=== PATIENT | female | born 1995 | race Caucasian/White ===

== ENCOUNTER → 2017-01-07 | Outpatient (REF) | payer OTHER, SELFPAY | LOC: M LAB REF 17:11 | PROVIDERS: ATTEND Advanced Practice Midwife | DX: Z11.3 Encounter for screening for infections with a predominantly sexual mode of transmission (principal) ==

== ENCOUNTER → 2017-08-18 | Outpatient (CLI) | payer MEDICAID ==
[2017-08-18 18:19] LABS: FREE T4 1.01 NG/DL (0.78-1.33)
[2017-08-18 18:56] LABS: BASO # 0.1 10^3/uL (0.0-0.2); BASO % 0.5 % (0.0-1.0); EOS # 0.1 10^3/uL (0.0-0.50); EOS % 0.9 % (0.0-3.0); HEMATOCRIT 39.8 % (36.0-47.0); HEMOGLOBIN 13.9 g/dl (12.0-16.0); IMMATURE GRANULOCYTE % 0.4 % (0-3.0); LYMPH # 2.6 10^3/uL (1.5-6.5); LYMPH % 20.2 % (24.0-44.0); MEAN CORPUSCULAR HEMOGLOBIN 29.9 pg (27.0-33.0); MEAN CORPUSCULAR HGB CONC 34.9 g/dl (32.0-36.5); MEAN CORPUSCULAR VOLUME 85.6 fl (80.0-96.0); MONO % 7.6 % (0.0-5.0); NEUTROPHILS % 70.4 % (36.0-66.0); PLATELET COUNT, AUTOMATED 318 10^3/uL (150-450); RED BLOOD COUNT 4.65 10^6/uL (4.00-5.40); RED CELL DISTRIBUTION WIDTH 11.9 % (11.5-14.5); WHITE BLOOD COUNT 12.8 10^3/uL (4.0-10.0)
[2017-08-18 19:49] LABS: CHLAMYDIA DNA AMPLIFICATION NEGATIVE (NEGATIVE); GC DNA AMPLIFICATION NEGATIVE (NEGATIVE)
[2017-08-20 10:25] LABS: RUBELLA IgG QUALITATIVE IMMUNE (IMMUNE)
[2017-08-20 10:39] LABS: HBsAg Prenatal NEGATIVE (NEGATIVE)
[2017-08-20 10:56] LABS: HIV 1&2 SCREEN CENTAUR NEGATIVE (NEGATIVE)
== END ==
LOC: M SMT 14:41
DX: Z36.89 Encounter for other specified antenatal screening (principal); Z3A.10 10 weeks gestation of pregnancy
CPT/HCPCS: 84443

== ENCOUNTER → 2017-08-19 | Outpatient (REF) | payer MEDICAID | LOC: M SFHCLERA 12:13 | DX: J02.9 Acute pharyngitis, unspecified (principal) ==

== ENCOUNTER → 2018-02-16 | Outpatient (REF) | payer OTHER | LOC: M LAB REF 17:26 | DX: Z34.83 Encounter for supervision of other normal pregnancy, third trimester (principal) ==

== ENCOUNTER → 2018-02-22 | Outpatient (CLI) | payer OTHER ==
[2018-02-22 14:20] LABS: HEMATOCRIT 34.7 % (36.0-47.0); HEMOGLOBIN 11.7 g/dl (12.0-15.5); MEAN CORPUSCULAR HEMOGLOBIN 30.1 pg (27.0-33.0); MEAN CORPUSCULAR HGB CONC 33.7 g/dl (32.0-36.5); MEAN CORPUSCULAR VOLUME 89.2 fl (80.0-96.0); PLATELET COUNT, AUTOMATED 317 10^3/uL (150-450); RED BLOOD COUNT 3.89 10^6/uL (4.00-5.40); RED CELL DISTRIBUTION WIDTH 12.1 % (11.5-14.5)
[2018-02-22 14:40] LABS: GLUCOSE CHALLENGE TEST 1 HOUR 160 MG/DL (LESS THAN 140)
== END ==
LOC: M LAB 12:07
DX: Z34.82 Encounter for supervision of other normal pregnancy, second trimester (principal)
CPT/HCPCS: 82950

== ENCOUNTER → 2018-02-28 | Outpatient (CLI) | payer OTHER | LOC: M RAD 17:01 | DX: O24.419 Gestational diabetes mellitus in pregnancy, unspecified control (principal); Z36.89 Encounter for other specified antenatal screening; Z3A.38 38 weeks gestation of pregnancy | CPT/HCPCS: 76816 ==

== ENCOUNTER 2018-03-08 14:48 | Inpatient (IN) | payer OTHER ==
[2018-03-08] MEDS: LACTATED RINGER'S 1000 ML IV (16:20)
[2018-03-08 16:44] LABS: HEMATOCRIT 34.8 % (36.0-47.0); HEMOGLOBIN 11.9 g/dl (12.0-15.5); MEAN CORPUSCULAR HEMOGLOBIN 30.2 pg (27.0-33.0); MEAN CORPUSCULAR HGB CONC 34.2 g/dl (32.0-36.5); MEAN CORPUSCULAR VOLUME 88.3 fl (80.0-96.0); PLATELET COUNT, AUTOMATED 315 10^3/uL (150-450); RED BLOOD COUNT 3.94 10^6/uL (4.00-5.40); RED CELL DISTRIBUTION WIDTH 12.5 % (11.5-14.5); WHITE BLOOD COUNT 11.7 10^3/uL (4.0-10.0)
[2018-03-08] MEDS: miSOPROStol 50 MCG 1/2 TAB (S0191) PO ×3 (16:53→22:00)
[2018-03-08 17:04] LABS: AMPHETAMINES URINE REFLEX NEGATIVE (NEGATIVE); BARBITURATES URINE REFLEX NEGATIVE (NEGATIVE); BENZODIAZEPINES URINE REFLEX NEGATIVE (NEGATIVE); CANNABINOIDS URINE REFLEX NEGATIVE (NEGATIVE); COCAINE METABOLITE URINE REFLE NEGATIVE (NEGATIVE); METHADONE URINE REFLEX NEGATIVE (NEGATIVE); OPIATES URINE REFLEX NEGATIVE (NEGATIVE); PHENCYCLIDINE URINE REFLEX NEGATIVE (NEGATIVE)
[2018-03-08 17:08] LABS: ALBUMIN 2.7 GM/DL (3.2-5.2); ALBUMIN/GLOBULIN RATIO 0.69 (1.00-1.93); ALKALINE PHOSPHATASE 198 U/L (45-117); ALT/SGPT 19 U/L (12-78); ANION GAP 12 MEQ/L (8-16); AST/SGOT 11 U/L (7-37); BILIRUBIN,TOTAL 0.2 MG/DL (0.2-1.0); BLOOD UREA NITROGEN 13 MG/DL (7-18); CALCIUM LEVEL 8.7 MG/DL (8.5-10.1); CARBON DIOXIDE LEVEL 19 MEQ/L (21-32); CHLORIDE LEVEL 107 MEQ/L (98-107); CREATININE FOR GFR 0.58 MG/DL (0.55-1.30); GLUCOSE, FASTING 85 MG/DL (70-100); POTASSIUM SERUM 4.2 MEQ/L (3.5-5.1); SODIUM LEVEL 138 MEQ/L (136-145); TOTAL PROTEIN 6.6 GM/DL (6.4-8.2)
[2018-03-08 18:18] LABS: CHLAMYDIA DNA AMPLIFICATION NEGATIVE (NEGATIVE); GC DNA AMPLIFICATION NEGATIVE (NEGATIVE)
[2018-03-08 21:45] LABS: BEDSIDE GLUCOSE 135 MG/DL (70-105)
[2018-03-09] MEDS: FENTANYL/ROPIVACAINE/NACL BAG 200 ML EPIDURAL (00:55)
[2018-03-09] MEDS ORDERED: EPIDURAL COMMENT XX (00:55)
[2018-03-09] MEDS ORDERED: EPIDURAL/PCA KEYS XX (00:55)
[2018-03-09] MEDS ORDERED: diphenhydrAMINE INJ 50MG/ML VIAL (J1200) IV (00:55)
[2018-03-09] MEDS ORDERED: REFRIGERATOR IV KEYS XX (00:55)
[2018-03-09] MEDS ORDERED: ePHEDrine SULFATE 25 MG/5 ML(5MG/ML) SYRINGE IV (00:55)
[2018-03-09] MEDS ORDERED: NALOXONE INJ 0.4 MG/1 ML VIAL (J2310) IV (00:55)
[2018-03-09] MEDS ORDERED: LACTATED RINGER'S 1000 ML IV (00:55)
[2018-03-09] MEDS ORDERED: ONDANSETRON 4MG/2ML VIAL (J2405) IV (00:55)
[2018-03-09] MEDS: LR 1,000 ML IV ×2 (00:56→11:56)
[2018-03-09] MEDS ORDERED: FENTANYL 2MCG/ML ROPIVACAINE 0.2% IN 0.9% NACL 200ML IVBAG As Ordered (02:35)
[2018-03-09] MEDS: OXYTOCIN DRIP 30 UNITS in APPROPRIATE DILUENT 1 EA IV (11:56)
[2018-03-09 14:08] LABS: CORD GAS ABE V -8.1; CORD GAS O2 SAT V 72.8 %; CORD GAS PCO2 V 44.6 mmHg; CORD GAS PH V 7.248 UNITS; CORD GAS PO2 V 32.5 mmHg; CORD GAS SBC V 17.5 MEQ/L; CORD GAS TCO2 V 20.4 MEQ/L
[2018-03-09 14:09] LABS: CORD GAS ABE A -7.8; CORD GAS HCO3 A 19.9 MEQ/L; CORD GAS O2 SAT A 78.8 %; CORD GAS PH A 7.235 UNITS; CORD GAS PO2 A 34.5 mmHg; CORD GAS SBC A 17.9 MEQ/L; CORD GAS TCO2 A 21.4 MEQ/L
[2018-03-09] MEDS ORDERED: ANUSOL HC CREAM 30GM TOP (14:30)
[2018-03-09] MEDS ORDERED: DOCUSATE SODIUM 100 MG CAP PO (14:30)
[2018-03-09] MEDS ORDERED: RHOGAM 300 MCG (1500 IU) INJ (J2790) IM (14:30)
[2018-03-09] MEDS ORDERED: DIBUCAINE 1% OINTMENT 30GM TOP (14:30)
[2018-03-09] MEDS ORDERED: MEASLES,MUMPS,RUBELLA VACCINE INJ (MMR-II) (90707) SC (14:30)
[2018-03-09] MEDS ORDERED: MOM 30ML SUSPENSION UDC PO (14:30)
[2018-03-09] MEDS ORDERED: METHYLERGONOVINE MALEATE 0.2 MG TAB PO (14:30)
[2018-03-09] MEDS ORDERED: INFLUENZA QUADRIVALENT PF VACCINE 0.5ML SYRINGE (90686) IM (18:00)
[2018-03-09] MEDS ORDERED: ADACEL/BOOSTRIX VACCINE (DIPHTH/PERTUSS/ACELL/TETANUS)0.5ML SYR (90715) IM (18:00)
[2018-03-09] MEDS: ACETAMINOPHEN 500 MG TAB PO (20:57)
[2018-03-10] MEDS: PRENATAL VITAMINS CHEWABLE TABLET PO (07:48)
[2018-03-10] MEDS: ACETAMINOPHEN 500 MG TAB PO (07:49)
[2018-03-10] MEDS: IBUPROFEN 800 MG TAB PO (07:50)
[2018-03-10] MEDS: ADACEL/BOOSTRIX VACCINE (DIPHTH/PERTUSS/ACELL/TETANUS)0.5ML SYR (90715) IM (09:54)
[2018-03-10] MEDS: INFLUENZA QUADRIVALENT PF VACCINE 0.5ML SYRINGE (90686) IM (09:55)
[2018-03-11] MEDS: PRENATAL VITAMINS CHEWABLE TABLET PO (09:01)
== END 2018-03-11 12:05 | disposition home or self-care (01) | DRG 560 ==
LOC: M LDI 14:48 → M OBS 03-09 15:54
PROC: 3E0DXGC Introduction of Other Therapeutic Substance into Mouth and Pharynx, External Approach (ICD-10-PCS; principal; 2018-03-08)
PROC: 10E0XZZ Delivery of Products of Conception, External Approach (ICD-10-PCS; 2018-03-09)
PROC: 0HQ9XZZ Repair Perineum Skin, External Approach (ICD-10-PCS; 2018-03-09)
DX: O24.429 Gestational diabetes mellitus in childbirth, unspecified control (principal); F17.200 Nicotine dependence, unspecified, uncomplicated; Z37.0 Single live birth; Z91.19 Patient's noncompliance with other medical treatment and regimen; Z3A.39 39 weeks gestation of pregnancy; O69.1XX0 Labor and delivery complicated by cord around neck, with compression, not applicable or unspecified; O70.0 First degree perineal laceration during delivery; O99.334 Smoking (tobacco) complicating childbirth

== ENCOUNTER → 2018-09-06 | Outpatient (CLI) | payer OTHER, SELFPAY ==
[~2018-09-06] MED LIST: IBUP-1114 PO; MAPA500T2 PO; PRENTAB9 PO
== END ==
LOC: M LAB 12:42
PROVIDERS: ATTEND Advanced Practice Midwife
DX: N91.2 Amenorrhea, unspecified (principal)

== ENCOUNTER → 2019-08-09 | Outpatient (CLI) | payer MEDICAID, SELFPAY ==
--- NOTE | 2019-08-10 13:52 | REP ---
Clinical: Date of viability. Technique: Transabdominal first trimester obstetrical ultrasound with color Doppler evaluation of the ovaries. Findings: Ultrasound examination demonstrates a single live early intrauterine . Biometrical measurements correspond to 15 weeks 0 days gestational age with estimated date of delivery 01/31/2020. heart rate equals 135 beats per minute. No gross abnormalities are identified. Impression: Single live early intrauterine with measurements at 15 weeks 0 days gestational age. Complete anatomical assessment should be performed at 19-20 weeks. Electronically Signed by Deejay Laboy MD 08/10/2019 01:43 P
== END ==
LOC: M WHC 13:26
PROVIDERS: ATTEND Advanced Practice Midwife
DX: Z34.82 Encounter for supervision of other normal pregnancy, second trimester (principal); Z3A.15 15 weeks gestation of pregnancy; Z36.87 Encounter for antenatal screening for uncertain dates

== ENCOUNTER → 2019-08-15 | Outpatient (CLI) | payer MEDICAID ==
[2019-08-15 12:35] LABS: BASO # 0.1 10^3/uL (0.0-0.2); BASO % 0.4 % (0.0-1.0); EOS # 0.1 10^3/uL (0.0-0.5); EOS % 0.6 % (0.0-3.0); HEMATOCRIT 39.4 % (36.0-47.0); HEMOGLOBIN 13.6 g/dl (12.0-15.5); LYMPH # 1.9 10^3/uL (1.5-5.0); LYMPH % 15.9 % (24.0-44.0); MEAN CORPUSCULAR HEMOGLOBIN 30.8 pg (27.0-33.0); MEAN CORPUSCULAR HGB CONC 34.5 g/dl (32.0-36.5); MEAN CORPUSCULAR VOLUME 89.3 fl (80.0-96.0); MONO # 0.8 10^3/uL (0.0-0.8); MONO % 6.7 % (0.0-5.0); NEUTROPHILS # 9.1 10^3/uL (1.5-8.5); NEUTROPHILS % 75.9 % (36.0-66.0); PLATELET COUNT, AUTOMATED 325 10^3/uL (150-450); RED BLOOD COUNT 4.41 10^6/uL (4.00-5.40)
[2019-08-15 12:43] LABS: GLUCOSE CHALLENGE TEST 1 HOUR 121 MG/DL (LESS THAN 140)
[2019-08-15 13:02] LABS: HEMOGLOBIN A1c 5.3 %
[2019-08-15 14:07] LABS: CHLAMYDIA DNA AMPLIFICATION NEGATIVE (NEGATIVE); GC DNA AMPLIFICATION NEGATIVE (NEGATIVE)
[2019-08-16 11:00] LABS: RUBELLA IgG QUALITATIVE IMMUNE (IMMUNE)
[2019-08-16 11:29] LABS: HEPATITIS C VIRUS ABY INDEX < 0.0 INDEX (<0.8)
[2019-08-16 11:30] LABS: HIV 1&2 SCREEN CENTAUR NEGATIVE (NEGATIVE)
== END ==
LOC: M PLALAB 09:10
PROVIDERS: ATTEND Advanced Practice Midwife
DX: Z34.82 Encounter for supervision of other normal pregnancy, second trimester (principal)

== ENCOUNTER 2019-08-20 15:27 | Emergency (ER) | payer MEDICAID, SELFPAY ==
[~2019-08-20] VITALS: Ht 172.7 cm; Wt 87.8 kg
[2019-08-20 15:28] VITALS: BP 112/57
== END 2019-08-20 16:33 | disposition left against medical advice (07) ==
LOC: M ED 15:27
DX: Z53.21 Procedure and treatment not carried out due to patient leaving prior to being seen by health care provider (principal)

== ENCOUNTER → 2019-09-20 | Outpatient (CLI) | payer MEDICAID, SELFPAY ==
--- NOTE | 2019-09-20 18:03 | REP ---
Clinical: Anatomical evaluation. Comparison: 08/09/2019 . Findings: Examination demonstrates a single live intrauterine in cephalic presentation. motion is identified by technologist. Placenta is noted anterior and grade I without evidence for placenta previa or abruption. Amniotic fluid volume is normal. Cervix measures 3.3 cm in length and appears closed. No evidence for nuchal cord. Gestational age by first US 21 weeks 0 days with NIKOS 01/31/2020 . Gestational age by current measurements 20 weeks 2 days with NIKOS 02/05/2020 . FHR equals 147 beats per minute. BPD 4.8 cm 20 weeks 3 days HC 17.5 cm 20 weeks 0 days AC 15.6 cm 20 weeks 5 days FL 3.5 cm 20 weeks 5 day HL 3.1 cm 20 weeks 2 days HC/AC ratio 1.13 Estimated weight 369 grams ( 37 percentile). Anatomical assessment demonstrates normal structures including cranium, choroid plexus, cavum, cerebellum/posterior fossa, facial features, lungs, four-chamber heart/ventricular outflow tracts, diaphragm, stomach, cord insertion/three-vessel cord, kidneys/bladder, spine, and extremities. Impression: Single live intrauterine demonstrating appropriate interval growth compared to first ultrasound. Anatomical assessment is complete and normal. No gross abnormalities are identified. Electronically Signed by Deejay Laboy MD 09/20/2019 05:55 P
== END ==
LOC: M WHC 09:54
PROVIDERS: ATTEND Advanced Practice Midwife
DX: Z34.82 Encounter for supervision of other normal pregnancy, second trimester (principal)

== ENCOUNTER 2019-10-11 08:26 | Emergency (ER) | payer MEDICAID, SELFPAY ==
[~2019-10-11] VITALS: Ht 172.7 cm; Wt 198.0 kg
[2019-10-11 08:45] VITALS: BP 113/57
[2019-10-11] MEDS ORDERED: dexameTHASONE 20MG/5ML VIAL (J1100 PER 1MG) IV ONE (09:15)
== END 2019-10-11 10:50 | disposition home or self-care (01) ==
LOC: EDBD 08:26 → M ED 08:26
DX: O99.712 Diseases of the skin and subcutaneous tissue complicating pregnancy, second trimester (principal); O99.332 Smoking (tobacco) complicating pregnancy, second trimester; Z3A.24 24 weeks gestation of pregnancy
CPT/HCPCS: 93041; 94760; 96374; 99285; J1100

== ENCOUNTER → 2019-12-08 | Outpatient (REF) | payer MEDICAID ==
[2019-12-08 13:58] LABS: HEMATOCRIT 35.3 % (36.0-47.0); HEMOGLOBIN 11.6 g/dl (12.0-15.5); MEAN CORPUSCULAR HEMOGLOBIN 30.9 pg (27.0-33.0); MEAN CORPUSCULAR HGB CONC 32.9 g/dl (32.0-36.5); MEAN CORPUSCULAR VOLUME 93.9 fl (80.0-96.0); PLATELET COUNT, AUTOMATED 285 10^3/uL (150-450); RED BLOOD COUNT 3.76 10^6/uL (4.00-5.40)
== END ==
LOC: M PLALAB 09:26
PROVIDERS: ATTEND Advanced Practice Midwife
DX: Z01.89 Encounter for other specified special examinations (principal)

== ENCOUNTER → 2020-01-09 | Outpatient (REF) | payer MEDICAID, OTHER ==
[~2020-01-09] MED LIST changes: +CLAR10CA3 PO; +PRED20TA PO
== END ==
LOC: M PLALAB 14:44
PROVIDERS: ATTEND Advanced Practice Midwife
DX: Z34.83 Encounter for supervision of other normal pregnancy, third trimester (principal); Z3A.36 36 weeks gestation of pregnancy

== ENCOUNTER 2020-01-12 20:06 | Inpatient (IN) | payer OTHER ==
[~2020-01-12] VITALS: Ht 172.7 cm; Wt 91.0 kg
[2020-01-12] VITALS (7 sets, daily range): BP systolic 109–122; BP diastolic 58–81
[~2020-01-12 20:06] MED LIST changes: -CLAR10CA3 PO; -PRED20TA PO
[2020-01-12] MEDS ORDERED: LR 1,000 ML IV SCH (20:31)
[2020-01-12] MEDS ORDERED: LACTATED RINGER'S 1000 ML IV STA (20:31)
[2020-01-12] MEDS ORDERED: OXYTOCIN DRIP 30 UNITS in IV 1 EA IV SCH (20:45)
[2020-01-12 20:50] LABS: HEMATOCRIT 33.8 % (36.0-47.0); HEMOGLOBIN 11.3 g/dl (12.0-15.5); MEAN CORPUSCULAR HEMOGLOBIN 29.2 pg (27.0-33.0); MEAN CORPUSCULAR HGB CONC 33.4 g/dl (32.0-36.5); MEAN CORPUSCULAR VOLUME 87.3 fl (80.0-96.0); PLATELET COUNT, AUTOMATED 345 10^3/uL (150-450); RED BLOOD COUNT 3.87 10^6/uL (4.00-5.40); WHITE BLOOD COUNT 14.5 10^3/uL (4.0-10.0)
[2020-01-12 21:21] LABS: ALBUMIN 2.6 GM/DL (3.2-5.2); ALT/SGPT 12 U/L (12-78); BILIRUBIN,TOTAL 0.1 MG/DL (0.2-1.0); BLOOD UREA NITROGEN 11 MG/DL (7-18); CALCIUM LEVEL 8.6 MG/DL (8.5-10.1); CARBON DIOXIDE LEVEL 18 MEQ/L (21-32); CHLORIDE LEVEL 109 MEQ/L (98-107); CREATININE FOR GFR 0.74 MG/DL (0.55-1.30); GLOMERULAR FILTRATION RATE > 60.0 (>60); GLUCOSE, FASTING 128 MG/DL (70-100); SODIUM LEVEL 137 MEQ/L (136-145); TOTAL PROTEIN 6.5 GM/DL (6.4-8.2)
--- NOTE | 2020-01-12 23:02 | HPEPDOC ---
Obstetrical History & Physical General Date of Admission Jan 12, 2020 at 20:06 History of Present Illness Chief Complaint: Induction of labor (poorly controlled gestational diabetes and noncompliance with plan of care) Information Provided By: Patient Age: 24 : 2 Term: 1 Pre-term: 0 Abortions: 0 Livin Care Care: Limited Care Dating Final EDC: Jan 31, 2020 Final EDC by: 2nd trimester (US) EGA at Admission: 37 (+2) Past Medical History Past Obstetrical History : Past Obstetrical History: Primgravida (2018) Type of Delivery: Spontaneous Vaginal Del. Sex of Infant: Male (7#9) Complications: Yes (gestational diabetes) Past Medical History Surgical History: Denies/None Family History Significant Family History: Cancer, Diabetes, Other (lupus) Social History Marital Status: Single Family situation: Spouse/partner home Psychosocial History: Anxiety, Depression * Smoker: current smoker (< 1/2 pack/day) Alcohol: Denies Drugs: denies Allergies Coded Allergies: No Known Allergies (Unverified , 03/08/18) Medications No Active Prescriptions or Reported Meds Physical Examination Physical Examination GENERAL: Alert and oriented times three. BREAST: . ABDOMEN: Gravid and non-tender to touch. EFW 7.5# FETUS: Is vertex (VTX) by sterile vaginal examination (SVE), fetus is vertex (VTX) by Ruy. HEART RATE: Regular rate and rhythm. LUNGS: Clear to auscultation (CTA). EXTREMITIES: No edema. No clonus. Deep tendon reflexes (DTRs) + 2. Vital Signs/I&O Vital Signs Date Time Temp Pulse Resp B/P (MAP) Pulse Ox O2 Delivery O2 Flow Rate FiO2 01/12/20 21:22 93 112/67 (82) 01/12/20 20:22 98.1 Laboratory Data 24H LABS Laboratory Tests 2 01/12/20 20:18: Serology Scanned Report Hepatitis B Testing 01/12/20 20:39: Nucleated Red Blood Cells % (auto) 0.0, Anion Gap 10, Glomerular Filtration Rate > 60.0, Calcium Level 8.6, Total Bilirubin 0.1L, Aspartate Amino Transf (AST/SGOT) 14, Alanine Aminotransferase (ALT/SGPT) 12, Alkaline Phosphatase 182H, Total Protein 6.5, Albumin 2.6L, Albumin/Globulin Ratio 0.7L 01/12/20 22:15: Bedside Glucose (Misc Panel) 96 CBC/BMP Laboratory Tests 01/12/20 20:39 Pertinent Laboratoy Data Blood Type: O+ RBC Antibody Screen: Negative HIV: Negative Hepatitis B: Negative Hepatitis C: Negative Rapid Plasma Reagin: Nonreactive Rubella: Immune Chlamydia/Gonorrhea: Negative Group B Streptococcus: Negative Glucose Tolerance Test: 155 (3hr not done, decided to test) Anatomy Ultrasound Ultrasound Date: Sep 20, 2019 Placenta Location: Anterior Normal Anatomy: Yes Placenta Previa: No Estimated Weight (grams): 369 (37%) Other Ultrasounds 08/09/2019 dating 15w0d NIKOS 01/31/2020 Steroid Therapy Steroid Therapy: No Vaginal Examination Dilation: 2cm Effacement: 50% Station: -2 Cervical Consistency: Soft Cervical Position: Posterior Presentation: Cephalic presentation Assessment Heart Rate (FHR): 135 Variability: Moderate Accelerations: Positive Decelerations: None Tocometer Frequency: irregular Duration: less than 60 seconds Strength: palpated as mild Assessment/Plan Assessment Laura is a 24-year-old (G)2 para (P)1-0-0-1 at 37+2 weeks by 15-week ultrasound. Presents to Labor and Delivery (L&D) for induction of labor. has been complicated by late entry to care, tobacco abuse, poorly controlled gestational diabetes and noncompliance with care. She denies LOF, bleeding or regular UC Plan Admit and orient. Client Relationship Manager and consent per consult Dr Conrad Diet: clear liquids. Group B Streptococcus (GBS) negative. Labs and intravenous (IV) per unit protocol. Counseled on Pitocin and induction of labor (IOL). Lactated Ringers (LR): Bolus 500 mL, then at 125 mL/hr. Plans epidural for labor coping Anticipate normal spontaneous delivery (). C-S as appropriate. Bre Delaney CNM Jan 12, 2020 22:42
[2020-01-12] MEDS ORDERED: FENTANYL 2MCG/ML ROPIVACAINE 0.2% IN 0.9% NACL 100ML IVBAG As Ordered ONE (23:37)
[2020-01-13] VITALS (41 sets, daily range): BP systolic 89–125; BP diastolic 48–77
[2020-01-13] MEDS ORDERED: NALOXONE INJ 0.4MG/1ML VIAL (J2310 PER 1MG) IV PRN (00:02)
[2020-01-13] MEDS ORDERED: REFRIGERATOR IV KEYS XX PRN (00:02)
[2020-01-13] MEDS ORDERED: ONDANSETRON 4MG/2ML VIAL IV PRN (00:02)
[2020-01-13] MEDS ORDERED: EPIDURAL/PCA KEYS XX PRN (00:02)
[2020-01-13] MEDS ORDERED: diphenhydrAMINE 50MG/ML VIAL (J1200) IV PRN (00:02)
[2020-01-13] MEDS ORDERED: ePHEDrine SULFATE 25 MG/5 ML(5MG/ML) SYRINGE IV PRN (00:02)
[2020-01-13] MEDS ORDERED: LACTATED RINGER'S 1000 ML IV PRN (00:02)
[2020-01-13] MEDS ORDERED: FENTANYL/ROPIVACAINE/NACL BAG 100 ML EPIDURAL SCH (00:02)
[2020-01-13] MEDS ORDERED: EPIDURAL COMMENT XX SCH (00:02)
--- NOTE | 2020-01-13 02:36 | IPNPDOC ---
Text Note Date of Service The patient was seen on 01/13/20. NOTE Progress Comfortable with epidural. SVE - bulb removed. 580/-1, moderate bloody show AROM small amount clear fluid Cat I tracing. Anticipate NSVB VS,Fishbone, I+O VS, Fishbone, I+O Laboratory Tests 01/12/20 20:39 Vital Signs Date Time Temp Pulse Resp B/P (MAP) Pulse Ox O2 Delivery O2 Flow Rate FiO2 01/12/20 21:22 93 112/67 (82) 01/12/20 20:22 98.1 I&O- Last 24 Hours up to 6 AM 01/13/20 05:59 Intake Total 500 ml Output Total 250 ml Balance 250 ml Bre Delaney CNM Jan 13, 2020 02:36
[2020-01-13 04:50] LABS: CORD GAS ABE A -11.7; CORD GAS ABE V -9.3; CORD GAS HCO3 V 16.8 MEQ/L; CORD GAS O2 SAT A 73.7 %; CORD GAS O2 SAT V 88.4 %; CORD GAS PCO2 A 48.7 mmHg; CORD GAS PCO2 V 37.4 mmHg; CORD GAS PH A 7.161 UNITS; CORD GAS PH V 7.27 UNITS; CORD GAS PO2 A 36.4 mmHg; CORD GAS PO2 V 47.7 mmHg; CORD GAS SBC V 16.9 MEQ/L; CORD GAS TCO2 A 18.5 MEQ/L; CORD GAS TCO2 V 17.9 MEQ/L
--- NOTE | 2020-01-13 05:10 | DNPDOC ---
[facility] Delivery Note Delivery Note DATE OF DELIVERY: 01/13/2020 PREDELIVERY DIAGNOSIS: 37-3/7 weeks' gestation and labor. POST DELIVERY DIAGNOSIS: Delivered. PROCEDURE: Spontaneous vaginal delivery PROVIDER: Bre Delaney CNM ESTIMATED BLOOD LOSS: 200 mL. FINDINGS: 6 pound 10 ounce, 3000gm male infant, Score 8/9, no nuchal cord. DELIVERY SUMMARY: Patient is a 24-year-old 2 now para 2-0-0-2 who was admitted to labor and delivery for induction of labor due to uncontrolled diabetes. She received pitocin and a Cook's catheter and labor did progress. She utilized an epidural for labor coping. AROM clear fluid 0229. Fully dilated 0416. Viable male delivered NATALIYA without difficulty @ 0438. Spontaneous re spirations with stimulation, transitioned on maternal abdomen. Cord gases obtained. Arterial 7.161 with BE -11.7; venous 7.270 BE -9.3. Cord doubly clamped and cut by family member under my direction once pulsation ceased. Apgars 8/9. Placenta simental, intact with 3v cord @ 0449. Fundus firmed with massage and premixed IV pitocin bolus. EBL 200ml. Cervix vagina and perineum intact. weight 6#10, 3000gm. Mother is naming her son Antonio. Sponge, sharp and instrument count correct. Bre Delaney CNM Jan 13, 2020 05:07
[2020-01-13] MEDS ORDERED: ANUSOL HC CREAM 30GM TOP PRN (05:15)
[2020-01-13] MEDS ORDERED: METHYLERGONOVINE MALEATE 0.2 MG TAB PO PRN (05:15)
[2020-01-13] MEDS ORDERED: RHOGAM 300 MCG (1500 IU) INJ (J2790) IM SCH (05:15)
[2020-01-13] MEDS ORDERED: ACETAMINOPHEN TAB 650MG DOSE (2X325MG) PO PRN (05:15)
[2020-01-13] MEDS ORDERED: IBUPROFEN 600MG TAB PO PRN (05:15)
[2020-01-13] MEDS ORDERED: MEASLES,MUMPS,RUBELLA VACCINE INJ (MMR-II) (90707) SC SCH (05:15)
[2020-01-13] MEDS ORDERED: DIBUCAINE 1% OINTMENT 30GM TOP PRN (05:15)
[2020-01-13] MEDS ORDERED: DOCUSATE SODIUM 100 MG CAP PO PRN (05:15)
[2020-01-13] MEDS ORDERED: MOM 30ML SUSPENSION UDC PO PRN (05:15)
[2020-01-13] MEDS: ACETAMINOPHEN 500 MG TAB PO PRN ×2 (06:55→22:22)
[2020-01-13] MEDS: IBUPROFEN 800 MG TAB PO PRN ×2 (06:56→15:33)
[2020-01-13] MEDS: PRENATAL VITAMINS CHEWABLE TABLET PO SCH (08:09)
[2020-01-13] MEDS ORDERED: LORATADINE 10 MG TAB PO STA (15:23)
[2020-01-13] MEDS ORDERED: dexameTHASONE 20MG/5ML VIAL (J1100 PER 1MG) IV STA (16:52)
[2020-01-13] MEDS ORDERED: diphenhydrAMINE 50MG/ML VIAL (J1200) IV STA (16:52)
[2020-01-14 05:50] VITALS: BP 102/54
[2020-01-14] MEDS: PRENATAL VITAMINS CHEWABLE TABLET PO SCH (07:28)
== END 2020-01-14 15:30 | disposition home or self-care (01) | DRG 560 ==
LOC: M LDI 20:06 → EEVIPCON 20:06 → M OBS 01-13 07:46 → UNDODISIN 01-14 13:30
PROVIDERS: ADMIT Advanced Practice Midwife; ATTEND Advanced Practice Midwife
PROC: 3E033VJ Introduction of Other Hormone into Peripheral Vein, Percutaneous Approach (ICD-10-PCS; 2020-01-12)
PROC: 10E0XZZ Delivery of Products of Conception, External Approach (ICD-10-PCS; principal; 2020-01-13)
PROC: 10907ZC Drainage of Amniotic Fluid, Therapeutic from Products of Conception, Via Natural or Artificial Opening (ICD-10-PCS; 2020-01-13)
DX: O24.429 Gestational diabetes mellitus in childbirth, unspecified control (principal); F17.200 Nicotine dependence, unspecified, uncomplicated; Z37.0 Single live birth; Z3A.37 37 weeks gestation of pregnancy; O99.334 Smoking (tobacco) complicating childbirth; Z91.19 Patient's noncompliance with other medical treatment and regimen

== ENCOUNTER 2020-01-19 22:07 | Emergency (ER) | payer OTHER ==
[~2020-01-19] VITALS: Ht 172.7 cm; Wt 88.6 kg
[2020-01-19] MEDS ORDERED: CLAR10CA3 PO (22:15)
[2020-01-19] MEDS ORDERED: PRED20TA PO (22:29)
[2020-01-19] MEDS ORDERED: methylPREDNISolone 125MG 2ML VIAL IM ONE (22:30)
[2020-01-19 23:08] VITALS: BP 130/84
== END 2020-01-19 23:09 | disposition home or self-care (01) ==
LOC: M ED 22:07
DX: T78.40XA Allergy, unspecified, initial encounter (principal); F17.210 Nicotine dependence, cigarettes, uncomplicated
CPT/HCPCS: 96372; 99283; J2930

== ENCOUNTER 2020-01-24 00:13 | Emergency (ER) | payer OTHER ==
[~2020-01-24] VITALS: Ht 172.7 cm; Wt 89.8 kg
[~2020-01-24 00:13] MED LIST changes: +CLAR10CA3 PO; +PRED20TA PO
[2020-01-24] MEDS ORDERED: diphenhydrAMINE 50MG/ML VIAL (J1200) IV ONE (01:15)
[2020-01-24] MEDS ORDERED: dexameTHASONE 20MG/5ML VIAL (J1100 PER 1MG) IV ONE (01:15)
[2020-01-24] MEDS ORDERED: FAMOTIDINE INJ 20MG/2ML VIAL (S0028 PER 1) IVP ONE (01:15)
[2020-01-24 01:32] LABS: BASO % 0.3 % (0.0-1.0); EOS # 0.1 10^3/uL (0.0-0.5); EOS % 0.8 % (0.0-3.0); HEMATOCRIT 38.5 % (36.0-47.0); HEMOGLOBIN 12.4 g/dl (12.0-15.5); LYMPH # 3.1 10^3/uL (1.5-5.0); LYMPH % 20.1 % (24.0-44.0); MEAN CORPUSCULAR HEMOGLOBIN 28.6 pg (27.0-33.0); MEAN CORPUSCULAR HGB CONC 32.2 g/dl (32.0-36.5); MEAN CORPUSCULAR VOLUME 88.9 fl (80.0-96.0); MONO # 0.7 10^3/uL (0.0-0.8); MONO % 4.6 % (0.0-5.0); NEUTROPHILS # 11.2 10^3/uL (1.5-8.5); NEUTROPHILS % 73.2 % (36.0-66.0); PLATELET COUNT, AUTOMATED 481 10^3/uL (150-450); RED BLOOD COUNT 4.33 10^6/uL (4.00-5.40); WHITE BLOOD COUNT 15.3 10^3/uL (4.0-10.0)
[2020-01-24 01:50] LABS: ERYTHROCYTE SEDIMENTATION RATE 126 mm/hr (0-20)
[2020-01-24 02:21] LABS: ALBUMIN 2.9 GM/DL (3.2-5.2); ALT/SGPT 23 U/L (12-78); BILIRUBIN,DIRECT < 0.1 MG/DL (0.0-0.2); BILIRUBIN,TOTAL 0.2 MG/DL (0.2-1.0); BLOOD UREA NITROGEN 16 MG/DL (7-18); C REACTIVE PROTEIN QUANTITATIV < 0.30 MG/DL (0.00-0.30); CALCIUM LEVEL 8.7 MG/DL (8.5-10.1); CARBON DIOXIDE LEVEL 24 MEQ/L (21-32); CHLORIDE LEVEL 108 MEQ/L (98-107); COMPLEMENT C4 23 MG/DL (10-40); CREATININE FOR GFR 0.97 MG/DL (0.55-1.30); GLOMERULAR FILTRATION RATE > 60.0 (>60); GLUCOSE, FASTING 115 MG/DL (70-100); POTASSIUM SERUM 4.2 MEQ/L (3.5-5.1); SODIUM LEVEL 140 MEQ/L (136-145); TOTAL PROTEIN 6.7 GM/DL (6.4-8.2)
[2020-01-24 02:29] VITALS: BP 123/68
[2020-02-19 08:06] LABS: TRYPTASE 4.2 ug/L (2.2-13.2)
== END 2020-01-24 02:33 | disposition home or self-care (01) ==
LOC: M ED 00:13
DX: R22.0 Localized swelling, mass and lump, head (principal); T78.3XXA Angioneurotic edema, initial encounter; X58.XXXA Exposure to other specified factors, initial encounter; Y92.89 Other specified places as the place of occurrence of the external cause; F33.9 Major depressive disorder, recurrent, unspecified; F41.9 Anxiety disorder, unspecified; Z79.899 Other long term (current) drug therapy; F17.210 Nicotine dependence, cigarettes, uncomplicated
CPT/HCPCS: 80048; 80076; 83519; 85025; 85280; 85652; 86140; 86160; 86161; 96374; 96375; 99284; J1100; J1200

== ENCOUNTER → 2020-01-28 | Emergency (ER) | payer OTHER ==
[~2020-01-28] MED LIST changes: +FAMOTIDINE INJ 20MG/2ML VIAL (S0028 PER 1) As Ordered ONE
[2020-03-05 10:15] LABS: RHEUMATOID FACTOR QUANT < 10.0 IU/ML (<15.0); THYROID STIMULATING HORMONE 0.375 uIU/ML (0.358-3.740)
[2020-03-06 15:07] LABS: ANTINUCLEAR ANTIBODIES DIRECT See Separate Report
== END | disposition home or self-care (01) ==
LOC: M ED 08:40
DX: T78.3XXA Angioneurotic edema, initial encounter (principal)

== ENCOUNTER 2020-06-01 14:40 | Emergency (ER) | payer MEDICAID, OTHER ==
[~2020-06-01] VITALS: Ht 172.7 cm; Wt 96.3 kg
[~2020-06-01 14:40] MED LIST changes: -FAMOTIDINE INJ 20MG/2ML VIAL (S0028 PER 1) As Ordered ONE
[2020-06-01] MEDS ORDERED: DOXE25CA PO (14:48)
[2020-06-01] MEDS ORDERED: XOLA150I SC (14:48)
[2020-06-01] MEDS ORDERED: HYDR-4570 PO (14:48)
[2020-06-01] MEDS ORDERED: LEVOTAB10 PO (14:48)
[2020-06-01] MEDS ORDERED: DOXY100C (14:48)
[2020-06-01] MEDS ORDERED: AZEL1SPR3 (14:48)
[2020-06-01 15:44] LABS: BASO # 0.1 10^3/uL (0.0-0.2); BASO % 0.9 % (0.0-1.0); EOS # 0.2 10^3/uL (0.0-0.5); EOS % 2.6 % (0.0-3.0); HEMATOCRIT 41.2 % (36.0-47.0); HEMOGLOBIN 13.6 g/dl (12.0-15.5); LYMPH # 2.9 10^3/uL (1.5-5.0); LYMPH % 31.7 % (24.0-44.0); MEAN CORPUSCULAR HEMOGLOBIN 29.1 pg (27.0-33.0); MEAN CORPUSCULAR VOLUME 88.2 fl (80.0-96.0); MONO # 0.7 10^3/uL (0.0-0.8); MONO % 7.6 % (0.0-5.0); NEUTROPHILS # 5.2 10^3/uL (1.5-8.5); NEUTROPHILS % 57.1 % (36.0-66.0); PLATELET COUNT, AUTOMATED 313 10^3/uL (150-450); RED BLOOD COUNT 4.67 10^6/uL (4.00-5.40); WHITE BLOOD COUNT 9.1 10^3/uL (4.0-10.0)
[2020-06-01] MEDS ORDERED: KETOROLAC 30 MG/ML 1ML VIAL IM ONE (15:45)
[2020-06-01] MEDS ORDERED: LIDOCAINE 5% (LIDODERM) PATCH TD ONE (15:45)
[2020-06-01] MEDS ORDERED: predniSONE 20 MG TAB PO ONE (15:45)
[2020-06-01] MEDS ORDERED: CYCLOBENZAPRINE 5MG TABLET PO ONE (15:45)
[2020-06-01 15:48] LABS: BLOOD UREA NITROGEN 14 MG/DL (7-18); CALCIUM LEVEL 8.4 MG/DL (8.5-10.1); CARBON DIOXIDE LEVEL 22 MEQ/L (21-32); CHLORIDE LEVEL 112 MEQ/L (98-107); CREATININE FOR GFR 0.88 MG/DL (0.55-1.30); GLOMERULAR FILTRATION RATE > 60.0 (>60); GLUCOSE, FASTING 93 MG/DL (70-100); POTASSIUM SERUM 4.1 MEQ/L (3.5-5.1); SODIUM LEVEL 140 MEQ/L (136-145)
--- NOTE | 2020-06-01 15:54 | REP ---
INDICATION: R hip pain COMPARISON: None. TECHNIQUE: Frontal view of the pelvis with neutral and frog lateral views of the right hip. FINDINGS: Osseous structures and joint spaces are intact and normal. Hip joints appear symmetric on frontal pelvic radiograph. No acute fracture dislocation. No evidence for healed injury. No significant degenerative or congenital abnormalities are appreciated. Surrounding soft tissues are unremarkable. IMPRESSION: Normal pelvis and right hip series. <Electronically signed by Deejay Laboy > 06/01/20 [id number]
--- NOTE | 2020-06-01 15:56 | REP ---
INDICATION: midline/R low back pain radiating to R hip. COMPARISON: None. TECHNIQUE: Axial noncontrast images of the lumbosacral spine from mid T12 through mid sacrum with coronal and sagittal reformations. This CT examination was performed using the following dose reduction techniques: Automated exposure control, adjustment of mA and/or kv according to the patient's size, and use of iterative reconstruction technique. FINDINGS: Alignment and lordosis maintained. Vertebral bodies are intact. Posterior elements and spinous processes are intact. There is no evidence for acute fracture/compression injury or subluxation. The spinal canal is patent. No obvious degenerative spondylosis noted by CT evaluation. The paravertebral soft tissues are normal. IMPRESSION: Normal lumbosacral spine CT. <Electronically signed by Deejay Laboy > 06/01/20 [id number]
[2020-06-01] MEDS ORDERED: IBUP80TA PO (17:26)
[2020-06-01] MEDS ORDERED: LIDO5DIS41 TOP (17:26)
[2020-06-01] MEDS ORDERED: CYCL5TAB PO (17:26)
[2020-06-01 17:40] VITALS: BP 118/67
[2020-06-01] MEDS ORDERED: **NOTE PATIENT COMMENT** MISC XX SCH (21:00)
== END 2020-06-01 17:41 | disposition home or self-care (01) ==
LOC: M ED 14:40
DX: S39.012A Strain of muscle, fascia and tendon of lower back, initial encounter (principal); X58.XXXA Exposure to other specified factors, initial encounter; Y92.9 Unspecified place or not applicable; Y93.9 Activity, unspecified; Y99.9 Unspecified external cause status; E11.9 Type 2 diabetes mellitus without complications; F41.9 Anxiety disorder, unspecified; F32.9 Major depressive disorder, single episode, unspecified; F17.200 Nicotine dependence, unspecified, uncomplicated; Z79.899 Other long term (current) drug therapy
CPT/HCPCS: 72131; 73502; 80048; 81001; 84702; 85025; 96372; 99283; J1885

== ENCOUNTER → 2020-06-18 | Outpatient (CLI) | payer OTHER ==
[~2020-06-18] MED LIST changes: +AZEL1SPR3; +CYCL5TAB PO; +DOXE25CA PO; +DOXY100C; +HYDR-4570 PO; +IBUP80TA PO; +LEVOTAB10 PO; +LIDO5DIS41 TOP; +XOLA150I SC
== END ==
LOC: M WUC 12:10
PROVIDERS: ATTEND Allergy & Immunology Allergy
DX: J31.0 Chronic rhinitis (principal)

== ENCOUNTER 2020-09-21 14:41 | Emergency (ER) | payer OTHER ==
[~2020-09-21] VITALS: Ht 172.7 cm; Wt 101.4 kg
[2020-09-21 15:41] LABS: BASO # 0.1 10^3/uL (0.0-0.2); EOS # 0.2 10^3/uL (0.0-0.5); EOS % 2.2 % (0.0-3.0); HEMATOCRIT 42.5 % (36.0-47.0); HEMOGLOBIN 14.3 g/dl (12.0-15.5); LYMPH # 2.5 10^3/uL (1.5-5.0); MEAN CORPUSCULAR HEMOGLOBIN 29.6 pg (27.0-33.0); MEAN CORPUSCULAR HGB CONC 33.6 g/dl (32.0-36.5); MONO # 0.8 10^3/uL (0.0-0.8); MONO % 8.4 % (2.0-8.0); NEUTROPHILS # 5.7 10^3/uL (1.5-8.5); NEUTROPHILS % 61.1 % (36.0-66.0); PLATELET COUNT, AUTOMATED 362 10^3/uL (150-450); RED BLOOD COUNT 4.83 10^6/uL (4.00-5.40); WHITE BLOOD COUNT 9.4 10^3/uL (4.0-10.0)
[2020-09-21 16:06] LABS: ALBUMIN 3.7 GM/DL (3.2-5.2); ALT/SGPT 25 U/L (12-78); BILIRUBIN,DIRECT 0.1 MG/DL (0.0-0.2); BILIRUBIN,TOTAL 0.4 MG/DL (0.2-1.0); BLOOD UREA NITROGEN 11 MG/DL (7-18); CALCIUM LEVEL 8.7 MG/DL (8.5-10.1); CARBON DIOXIDE LEVEL 22 MEQ/L (21-32); CHLORIDE LEVEL 111 MEQ/L (98-107); CREATININE FOR GFR 0.87 MG/DL (0.55-1.30); GLOMERULAR FILTRATION RATE > 60.0 (>60); GLUCOSE, FASTING 107 MG/DL (70-100); HCG, SERUM QUANTITATIVE 746 MIU/ML; LIPASE 54 U/L (73-393); POTASSIUM SERUM 4.1 MEQ/L (3.5-5.1); SODIUM LEVEL 139 MEQ/L (136-145); TOTAL PROTEIN 7.1 GM/DL (6.4-8.2)
--- NOTE | 2020-09-21 18:02 | REPVR ---
PROCEDURE INFORMATION: Exam: US First Trimester, Transabdominal Exam date and time: 09/21/2020 5:23 PM Age: 25 years old Clinical indication: Lmp or gestational age (in weeks): 16 wks; Other: + naseua; ; Additional info: + hcg, abdominal pain TECHNIQUE: Imaging protocol: Real-time transabdominal obstetrical ultrasound of the maternal pelvis and a first trimester , less than 14 weeks 0 days, with image documentation. COMPARISON: No relevant prior studies available. FINDINGS: Gestation: No evidence of a pole. Embryonic/ heart rate: cardiac activity not detected. Placenta: Unremarkable. No subchorionic bleed. Amniotic fluid: Amniotic fluid is normal for gestational age. BIOMETRY: Gestational age (AUA): 4 weeks 6 days based upon the cystic lesion in the in the true wall. MATERNAL: Uterus: Uterus measures 7.6 x 4.5 x 5.3 cm. Endometrial fluid demonstrating in the upper endometrial cavity measuring 5 x 17 x 5 mm. Cystic focus demonstrated in the wall of the endometrium measuring 4 x 5 by 5 mm. Cervix: Unremarkable. Right adnexa: Unremarkable. Left adnexa: Unremarkable. Intraperitoneal space: No intraperitoneal free fluid. IMPRESSION: No clear evidence of a gestational sac in this patient with weakly positive test. Follow-up with beta HCG levels and ultrasound recommended to document the presence of a pole and cardiac activity and to exclude early loss or ectopic. Electronically signed by: Armani Taylor On 09/21/2020 18:02:07 PM
[2020-09-21 18:22] VITALS: BP 128/68
== END 2020-09-21 18:24 | disposition home or self-care (01) ==
LOC: M ED 14:41
DX: O21.0 Mild hyperemesis gravidarum (principal); O99.341 Other mental disorders complicating pregnancy, first trimester; O99.331 Smoking (tobacco) complicating pregnancy, first trimester; Z87.59 Personal history of other complications of pregnancy, childbirth and the puerperium; Z79.899 Other long term (current) drug therapy

== ENCOUNTER → 2020-11-07 | Outpatient (CLI) | payer OTHER ==
[2020-11-07 17:27] LABS: HEMATOCRIT 39.2 % (36.0-47.0); HEMOGLOBIN 13.1 g/dl (12.0-15.5); MEAN CORPUSCULAR HEMOGLOBIN 30.3 pg (27.0-33.0); MEAN CORPUSCULAR HGB CONC 33.4 g/dl (32.0-36.5); MEAN CORPUSCULAR VOLUME 90.5 fl (80.0-96.0); PLATELET COUNT, AUTOMATED 331 10^3/uL (150-450); RED BLOOD COUNT 4.33 10^6/uL (4.00-5.40); WHITE BLOOD COUNT 12.4 10^3/uL (4.0-10.0)
[2020-11-07 17:41] LABS: GLUCOSE CHALLENGE TEST 1 HOUR 106 MG/DL (LESS THAN 140)
[2020-11-07 18:36] LABS: HEPATITIS C VIRUS ABY INDEX < 0.0 INDEX (<0.8)
[2020-11-07 18:37] LABS: HIV 1&2 SCREEN CENTAUR NEGATIVE (NEGATIVE)
[2020-11-07 18:56] LABS: HEMOGLOBIN A1c 5.3 %
== END ==
LOC: M PLALAB 13:11
PROVIDERS: ATTEND Advanced Practice Midwife
DX: Z34.91 Encounter for supervision of normal pregnancy, unspecified, first trimester (principal)

== ENCOUNTER 2020-12-04 09:14 | Emergency (ER) | payer OTHER ==
[~2020-12-04] VITALS: Ht 172.7 cm; Wt 91.8 kg
[2020-12-04] MEDS ORDERED: PREN29CH2 PO (10:46)
--- NOTE | 2020-12-04 11:58 | REP ---
INDICATION: left ankle injury s/p fall COMPARISON: None. TECHNIQUE: AP, lateral, bilateral oblique views. FINDINGS: Soft tissue swelling noted. No acute fracture or dislocation. Joint spaces and ankle mortise are intact. No subcutaneous emphysema or foreign body. IMPRESSION: Lateral swelling. No acute fracture. <Electronically signed by Deejay Laboy > 12/04/20 0341
[2020-12-04 12:05] VITALS: BP 125/79
== END 2020-12-04 12:06 | disposition home or self-care (01) ==
LOC: M ED 09:14
DX: S93.402A Sprain of unspecified ligament of left ankle, initial encounter (principal); W10.9XXA Fall (on) (from) unspecified stairs and steps, initial encounter; Y92.009 Unspecified place in unspecified non-institutional (private) residence as the place of occurrence of the external cause; Y93.9 Activity, unspecified; Y99.9 Unspecified external cause status; Z79.899 Other long term (current) drug therapy

== ENCOUNTER 2020-12-07 01:30 | Emergency (ER) | payer OTHER ==
[~2020-12-07] VITALS: Ht 170.2 cm; Wt 101.0 kg
[~2020-12-07 01:30] MED LIST changes: +PREN29CH2 PO
[2020-12-07] MEDS ORDERED: FAMO1TAB11 (01:40)
[2020-12-07] MEDS ORDERED: diphenhydrAMINE 50MG/ML VIAL (J1200) IV ONE (02:25)
[2020-12-07] MEDS ORDERED: methylPREDNISolone 125MG 2ML VIAL IV ONE (02:25)
[2020-12-07] MEDS ORDERED: C1 ESTERASE INHIBITOR IV ONE (04:50)
[2020-12-07] MEDS ORDERED: C1 ESTERASE INHIBITOR (HUMAN) 2,000 UNIT in IV 1 EA IV ONE (05:30)
[2020-12-07 07:00] VITALS: BP 91/50
== END 2020-12-07 07:06 | disposition home or self-care (01) ==
LOC: M ED 01:30
DX: O99.112 Other diseases of the blood and blood-forming organs and certain disorders involving the immune mechanism complicating pregnancy, second trimester (principal); D84.1 Defects in the complement system; Z3A.15 15 weeks gestation of pregnancy; Z79.899 Other long term (current) drug therapy
CPT/HCPCS: 96374; 96375; 99284; J0597; J1200; J2930

== ENCOUNTER 2020-12-08 20:41 | Emergency (ER) | payer OTHER ==
[~2020-12-08] VITALS: Ht 170.2 cm; Wt 100.9 kg
[~2020-12-08 20:41] MED LIST changes: +FAMO1TAB11
[2020-12-08] MEDS ORDERED: FAMOTIDINE INJ 20MG/2ML VIAL (S0028 PER 1) IVP ONE (20:55)
[2020-12-08] MEDS ORDERED: methylPREDNISolone 125MG 2ML VIAL IV ONE (20:55)
[2020-12-08] MEDS ORDERED: C1 ESTERASE INHIBITOR IV ONE (20:55)
[2020-12-08 21:18] LABS: BASO % 0.2 % (0.0-1.0); EOS # 0.1 10^3/uL (0.0-0.5); EOS % 0.7 % (0.0-3.0); HEMOGLOBIN 11.9 g/dl (12.0-15.5); LYMPH # 2.9 10^3/uL (1.5-5.0); LYMPH % 24.1 % (24.0-44.0); MEAN CORPUSCULAR HEMOGLOBIN 30.2 pg (27.0-33.0); MEAN CORPUSCULAR VOLUME 88.8 fl (80.0-96.0); MONO # 0.6 10^3/uL (0.0-0.8); MONO % 4.6 % (2.0-8.0); NEUTROPHILS # 8.5 10^3/uL (1.5-8.5); NEUTROPHILS % 70.1 % (36.0-66.0); PLATELET COUNT, AUTOMATED 303 10^3/uL (150-450); RED BLOOD COUNT 3.94 10^6/uL (4.00-5.40); WHITE BLOOD COUNT 12.1 10^3/uL (4.0-10.0)
[2020-12-08 21:37] LABS: BLOOD UREA NITROGEN 17 MG/DL (7-18); CALCIUM LEVEL 8.3 MG/DL (8.5-10.1); CARBON DIOXIDE LEVEL 21 MEQ/L (21-32); CHLORIDE LEVEL 109 MEQ/L (98-107); CREATININE FOR GFR 0.59 MG/DL (0.55-1.30); GLOMERULAR FILTRATION RATE > 60.0 (>60); GLUCOSE, FASTING 97 MG/DL (70-100); POTASSIUM SERUM 3.5 MEQ/L (3.5-5.1); SODIUM LEVEL 139 MEQ/L (136-145)
[2020-12-08 23:18] VITALS: BP 156/75
[2020-12-08 23:31] VITALS: BP 151/69
[2020-12-09 01:07] VITALS: BP 149/64
[2020-12-09 02:00] VITALS: BP 147/65
== END 2020-12-09 02:21 | disposition home or self-care (01) ==
LOC: M ED 20:41
DX: O99.891 Other specified diseases and conditions complicating pregnancy (principal); D84.1 Defects in the complement system; Z3A.16 16 weeks gestation of pregnancy; Z79.899 Other long term (current) drug therapy; Z86.79 Personal history of other diseases of the circulatory system
CPT/HCPCS: 36430; 80048; 85025; 86850; 86900; 86901; 86927; 96374; 96375; 99285; J2930; P9017

== ENCOUNTER → 2020-12-31 | Outpatient (CLI) | payer OTHER ==
--- NOTE | 2020-12-31 11:37 | REP ---
INDICATION: ANATOMY COMPARISON: 09/22/2019 TECHNIQUE: Transabdominal obstetrical ultrasound with color Doppler evaluation. FINDINGS: Examination demonstrates a single live intrauterine in variable presentation. motion is identified by technologist. Placenta is noted anterior and grade 1 without evidence for placenta previa or abruption. Amniotic fluid volume is normal. Cervix measures 3.9 cm in length and appears closed.. Selected gestational age: 19 weeks 3 days with NIKOS 05/24/2021. Gestational age by current measurements 19 weeks 4 days with NIKOS 05/23/2021. FHR equals 153 beats per minute. Estimated weight 296 grams (50thpercentile). Anatomical assessment demonstrates normal structures including cranium, choroid plexus, cavum, cerebellum/posterior fossa, facial features, lungs, four-chamber heart/left ventricular outflow tract, diaphragm, stomach, cord insertion/three-vessel cord, kidneys/bladder, and extremities. Limited evaluation of the right cardiac ventricular outflow tract and spine due to motion IMPRESSION: Single live intrauterine in variable presentation demonstrating appropriate estimated weight. Anatomical limitations as noted above may warrant follow-up. Remainder of the anatomical assessment is complete and normal. <Electronically signed by Deejay Laboy > 12/31/20 [id number]
== END ==
LOC: M WHC 10:28
PROVIDERS: ATTEND Advanced Practice Midwife
DX: O99.332 Smoking (tobacco) complicating pregnancy, second trimester (principal); F17.200 Nicotine dependence, unspecified, uncomplicated; Z3A.19 19 weeks gestation of pregnancy

== ENCOUNTER → 2021-01-28 | Outpatient (CLI) | payer OTHER ==
--- NOTE | 2021-01-28 14:00 | REP ---
INDICATION: F/U ANATOMY. COMPARISON: Comparison study December 31, 2020.. TECHNIQUE: Transabdominal obstetric sonography. FINDINGS: Scanning through the gravid uterus demonstrates a viable single intrauterine gestation in breech lie. motion is observed and heart rate is recorded at 143 beats per minute. A anterior placenta is seen, grade 1, without evidence of placenta previa. Closed cervical length is measured at 4.3 cm transabdominally. No extrauterine abnormality is observed. Amniotic fluid is subjectively normal. No anomaly is seen. The following anatomic structures are identified and felt to be sonographically unremarkable: cranium, choroid plexus, cavum, cerebellum and posterior fossa, face and profile, lungs, four-chamber heart with left and right ventricular outflow tract views, diaphragm, left-sided stomach, abdominal wall cord insertion, three-vessel umbilical cord, kidneys and bladder, spine, and upper and lower extremities. Biometry chart: BPD 5.8 cm, 23 weeks 5 days Head circumference 21.1 cm, 23 weeks 1 day Abdominal circumference 18.6 cm, 23 weeks 3 days Femur length 4.0 cm, 23 weeks 0 days Humeral length 3.8 cm, 23 weeks 3 days HC AC ratio normal 1.13 Cephalic index normal 0.77 Estimated weight 575 g, 1 lb 4 oz, 33rd percentile for 23 weeks 3 days IMPRESSION: Viable single intrauterine gestation at 23 weeks 2 days by today's composite sonographic criteria. NIKOS by today's sonography May 25, 2021. No complication identified. Expected gestational age estimate based on known NIKOS of 24 May 2021 is 23 weeks 3 days. In conjunction with the prior study, anatomic survey is felt to be complete. <Electronically signed by Laron Lopez > 01/28/21 [id number]
== END ==
LOC: M WHC 12:33
PROVIDERS: ATTEND Advanced Practice Midwife
DX: Z36.2 Encounter for other antenatal screening follow-up (principal); Z3A.23 23 weeks gestation of pregnancy

== ENCOUNTER → 2021-02-28 | Outpatient (CLI) | payer OTHER ==
[~2021-02-28] MED LIST changes: -DOXY100C; +DOXY100C3
[2021-02-28 15:35] LABS: HEMATOCRIT 36.5 % (36.0-47.0); HEMOGLOBIN 12.5 g/dl (12.0-15.5); MEAN CORPUSCULAR HEMOGLOBIN 30.8 pg (27.0-33.0); MEAN CORPUSCULAR HGB CONC 34.2 g/dl (32.0-36.5); MEAN CORPUSCULAR VOLUME 89.9 fl (80.0-96.0); PLATELET COUNT, AUTOMATED 333 10^3/uL (150-450); RED BLOOD COUNT 4.06 10^6/uL (4.00-5.40); WHITE BLOOD COUNT 13.9 10^3/uL (4.0-10.0)
[2021-02-28 17:10] LABS: GC DNA AMPLIFICATION NEGATIVE (NEGATIVE)
[2021-02-28 19:07] LABS: HEMOGLOBIN A1c 5.4 %
== END ==
LOC: M PLALAB 12:40
PROVIDERS: ATTEND Advanced Practice Midwife
DX: Z36.89 Encounter for other specified antenatal screening (principal); Z3A.24 24 weeks gestation of pregnancy

== ENCOUNTER → 2021-03-27 | Outpatient (CLI) | payer OTHER ==
--- NOTE | 2021-03-27 11:25 | REP ---
INDICATION: GROWTH/GESTATIONAL DIABETES. COMPARISON: 01/28/2021. TECHNIQUE: Real-time sonographic evaluation of the gravid uterus performed. FINDINGS: Estimated gestational age is31 weeks 5 days, EDC 05/24/2021. Today's measurements indicate appropriate growth. Presentation: Cephalic Placenta anterior, grade 1, without evidence of placenta previa. heart rate is recorded at 142 beats per minute. Amniotic fluid is subjectively normal. ROJAS 19.1, normal 8.7-24.1. Closed cervical length is measured at 3.4 cm. Biometry chart: BPD: 81 mm, 32 weeks 3 days, 60th percentile. HC: 293 mm, 32 weeks 2 days, 59th percentile AC: 277 mm, 31 weeks 5 days, 50th percentile Femur length: 60 mm, 31 weeks 3 days, 45th percentile HC to AC ratio: 1.06, normal range 0.96-1.15. Estimated weight: 1827g, 39th percentile. IMPRESSION: Viable single intrauterine gestation as above. <Electronically signed by Baltazar Neal > 03/27/21 112
== END ==
LOC: M WHC 10:36
PROVIDERS: ATTEND Obstetrics & Gynecology
DX: O24.419 Gestational diabetes mellitus in pregnancy, unspecified control (principal); Z3A.31 31 weeks gestation of pregnancy

== ENCOUNTER 2021-04-13 12:52 | Outpatient (CLI) | payer OTHER ==
[~2021-04-13] VITALS: Ht 170.2 cm; Wt 105.1 kg
[2021-04-13 13:20] VITALS: BP 125/72
--- NOTE | 2021-04-13 15:34 | IPNPDOC ---
Obstetrical Progress Note Date of Service Apr 13, 2021 Subjective Subjective/HPI: 25-year-old G 3 P 2001 at 34+1 weeks' gestation. Final EDC of 05/24/2021 by first trimester ultrasound. Presents today complaining of uterine cramping/contraction/pelvic discomfort. Denies any vaginal bleeding or loss of fluid. Reports regular movement. Denies headache, visual changes, shortness of breath, chest pain. course complicated by GDM A2, currently taking insulin PMH/SH: Gestational diabetes/likely pregestational diabetes. No changes in her history since her last appointment. Objective: Normotensive. Normal heart rate. Afebrile Abdomen soft, nontender, nondistended. Uterine fundus , nontender. Extremities nonedematous, nontender Pelvic: Sterile speculum exam reveals no pooling, no vaginal bleeding, no abnormal discharge or foul odor. Negative Nitrazine, negative ferning. Sterile vaginal/cervical exam reveals a closed long thick cervix. Transabdominal ultrasound, limited: Cephalic presentation, MVP 6.2 cm EFM: Reactive, moderate variability, no decelerations [place]: No significant contraction frequency Assessment/plan: 25 year-old at 34+1 weeks' gestation. No evidence of premature ruptured membranes, active labor, or advanced cervical dilation. Current maternal and condition is reassuring. -Routine third trimester precautions were reviewed -Follow-up in the office as scheduled Objective Vital Signs Date Time Temp Pulse Resp B/P (MAP) Pulse Ox O2 Delivery O2 Flow Rate FiO2 04/13/21 13:20 101 16 125/72 (89) ARIA GIRARD DO Apr 13, 2021 15:34
[2021-04-13] MEDS ORDERED: HYDR50TA70 PO (17:24)
[2021-04-13] MEDS ORDERED: FAMO10TA50 PO (17:24)
[2021-04-13] MEDS ORDERED: DOXE50CA PO (17:24)
[2021-04-13] MEDS ORDERED: OMEP10CASR PO (17:27)
== END 2021-04-13 15:46 | disposition home or self-care (01) ==
LOC: M LDO 12:52
PROVIDERS: ATTEND Obstetrics & Gynecology
DX: O26.893 Other specified pregnancy related conditions, third trimester (principal); R25.2 Cramp and spasm; Z3A.34 34 weeks gestation of pregnancy; O24.414 Gestational diabetes mellitus in pregnancy, insulin controlled

== ENCOUNTER → 2021-04-22 | Outpatient (CLI) | payer OTHER ==
[~2021-04-22] MED LIST changes: +DOXE50CA PO; +FAMO10TA50 PO; +HYDR50TA70 PO; +OMEP10CASR PO
--- NOTE | 2021-04-22 16:13 | REP ---
INDICATION: GROWTH GESTATIONAL DIABETES COMPARISON: 03/27/2021 TECHNIQUE: Transabdominal obstetrical ultrasound with color Doppler evaluation. FINDINGS: Examination demonstrates a single live intrauterine in cephalic presentation. motion is identified by technologist. Placenta is noted anterior and grade 2 without evidence for placenta previa or abruption. Amniotic fluid volume is normal. Cervix measures 3.4 cm in length and appears closed.. Selected gestational age: 35 weeks 3 days with NIKOS 05/24/2021. Gestational age by current measurements 35 weeks 3 days with NIKOS 05/24/2021. FHR equals 133 beats per minute. Estimated weight 2597 grams (40thpercentile). ROJAS: 11.5 cm IMPRESSION: Single live intrauterine in cephalic presentation demonstrating appropriate estimated weight. No gross abnormalities are identified. Amniotic fluid volume is normal. <Electronically signed by Deejay Laboy > 04/22/21 1521
== END ==
LOC: M WHC 15:35
PROVIDERS: ATTEND Obstetrics & Gynecology
DX: O24.419 Gestational diabetes mellitus in pregnancy, unspecified control (principal); Z3A.35 35 weeks gestation of pregnancy

== ENCOUNTER → 2021-04-29 | Outpatient (REF) | payer OTHER | LOC: M SFHCWAGY 13:03 | PROVIDERS: ATTEND Obstetrics & Gynecology | DX: Z34.93 Encounter for supervision of normal pregnancy, unspecified, third trimester (principal) ==

== ENCOUNTER 2021-05-03 19:17 | Inpatient (IN) | payer OTHER ==
[~2021-05-03] VITALS: Ht 172.7 cm; Wt 110.4 kg
[2021-05-03 20:32] LABS: HEMATOCRIT 36.6 % (36.0-47.0); HEMOGLOBIN 12.2 g/dl (12.0-15.5); MEAN CORPUSCULAR HEMOGLOBIN 28.9 pg (27.0-33.0); MEAN CORPUSCULAR HGB CONC 33.3 g/dl (32.0-36.5); MEAN CORPUSCULAR VOLUME 86.7 fl (80.0-96.0); PLATELET COUNT, AUTOMATED 340 10^3/uL (150-450); RED BLOOD COUNT 4.22 10^6/uL (4.00-5.40); WHITE BLOOD COUNT 15.2 10^3/uL (4.0-10.0)
[2021-05-03] MEDS ORDERED: OXYTOCIN DRIP 30 UNITS in IV 1 EA IV PRN (21:15)
[2021-05-03] MEDS: NS 1,000 ML IV SCH (21:15)
--- NOTE | 2021-05-03 21:29 | HPEPDOC ---
Obstetrical History & Physical General Date of Admission May 03, 2021 at 19:17 History of Present Illness 25-year-old G3, P2 presents at 37 weeks 2 days for induction of labor due to poorly controlled diabetes Chief Complaint: Induction of labor Information Provided By: Patient Age: 25 : 3 Livin Care Care: Good Care Dating Final EDC: May 24, 2021 Final EDC by: 1st trimester (US) EGA at Admission: 37 Past Medical History Past Obstetrical History #1: Date of Delivery: Mar 09, 2018 Type of Delivery: Spontaneous Vaginal Del. Sex of : Male Complications: Yes (Poorly controlled gestational diabetes) Past Obstetrical History #2: Date of Delivery: Jan 13, 2020 Type of Delivery: Spontaneous Vaginal Del. Sex of : Male Complications: Yes (Poorly controlled gestational diabetes) MANAGER CLINICAL History: History of STD Family History Significant Family History: Cancer, Diabetes Social History * Smoker: current smoker Alcohol: Denies Drugs: denies Allergies Coded Allergies: No Known Allergies (Unverified , 03/08/18) Medications Scheduled Famotidine (Famotidine) 10 Mg Tablet, 50 MG PO DAILY Hydroxyzine HCl (Hydroxyzine HCl) 50 Mg Tablet, 50 MG PO QPM for anxiety Omeprazole (Omeprazole) 10 Mg Capsule.dr, 1 CAP PO DAILY No115/Iron/Folic Acid ( 19 Chewable Tablet) 1 Each Tab.chew, 1 TAB PO DAILY Physical Examination Physical Examination GENERAL: Alert and oriented times three. BREAST: . ABDOMEN: Gravid and non-tender to touch. EFW 3000 g FETUS: Is vertex (VTX) by sterile vaginal examination (SVE), fetus is vertex (VTX) by Ruy. HEART RATE: Regular rate and rhythm. LUNGS: Clear to auscultation (CTA). Laboratory Data 24H LABS Laboratory Tests 2 05/03/21 19:33: Serology Scanned Report Hepatitis B Testing 05/03/21 20:17: Nucleated Red Blood Cells % (auto) 0.0, Coronavirus (COVID-19)(PCR) NEGATIVE CBC/BMP Laboratory Tests 05/03/21 20:17 Pertinent Laboratoy Data Blood Type: O+ RBC Antibody Screen: Negative HIV: Negative Hepatitis B: Negative Hepatitis C: Negative Rapid Plasma Reagin: Nonreactive Rubella: Immune Chlamydia/Gonorrhea: Negative Group B Streptococcus: Negative Anatomy Ultrasound Placenta Location: Anterior Normal Anatomy: Yes Placenta Previa: No Vaginal Examination Dilation: Fingertip Cervical Position: Posterior Presentation: Cephalic presentation Assessment Variability: Moderate Tocometer Contractions: Yes Frequency: irregular Assessment/Plan Assessment 25-year-old at 37 weeks 0 days with poorly controlled gestational diabetes Reassuring status Plan Admit and orient. Power Station Operator and consent. Group B Streptococcus (GBS) negative. Labs and intravenous (IV) per unit protocol. Counseled on Pitocin and induction of labor (IOL). Insulin drip per protocol Anticipate normal spontaneous delivery (). C-S as appropriate. NGUYEN SHANNON MD. May 03, 2021 21:29
[2021-05-03] MEDS ORDERED: INSULIN IV RATE CHANGE DOCUMENTATION ML/HR XX SCH (21:45)
[2021-05-03] MEDS ORDERED: INSULIN REGULAR IN 0.9 % NACL 100 UNIT in IV 1 EA IV SCH ×2 (21:45)
[2021-05-03] MEDS: miSOPROStol 50MCG 1/2 TABLET PO SCH (21:45)
[2021-05-04] VITALS (11 sets, daily range): BP systolic 100–141; BP diastolic 51–84
[2021-05-04] MEDS: NS 1,000 ML IV SCH (00:13)
[2021-05-04] MEDS: miSOPROStol 50MCG 1/2 TABLET PO SCH (02:11)
[2021-05-04] MEDS ORDERED: OXYTOCIN DRIP 30 UNITS in IV 1 EA IV SCH (05:05)
[2021-05-04] MEDS ORDERED: LR 1,000 ML IV SCH (05:05)
[2021-05-04] MEDS ORDERED: NS 1,000 ML IV SCH (09:15)
[2021-05-04] MEDS ORDERED: MOM 30ML SUSPENSION UDC PO PRN (11:30)
[2021-05-04] MEDS ORDERED: IBUPROFEN 800 MG TAB PO PRN (11:30)
[2021-05-04] MEDS ORDERED: METHYLERGONOVINE MALEATE 0.2 MG TAB PO PRN (11:30)
[2021-05-04] MEDS ORDERED: ACETAMINOPHEN 500 MG TAB PO PRN (11:30)
[2021-05-04] MEDS ORDERED: OXYTOCIN INJ 10 UNITS/ML VIAL (J2590) IM PRN (11:30)
[2021-05-04] MEDS ORDERED: MEASLES,MUMPS,RUBELLA VACCINE INJ (MMR-II) (90707) SC SCH (11:30)
[2021-05-04] MEDS ORDERED: RHOGAM 300 MCG (1500 IU) INJ (J2790) IM SCH (11:30)
[2021-05-04] MEDS ORDERED: DIBUCAINE 1% OINTMENT 30GM TOP PRN (11:30)
[2021-05-04] MEDS ORDERED: IBUPROFEN 600MG TAB PO PRN (11:30)
[2021-05-04] MEDS ORDERED: DOCUSATE SODIUM 100MG CAPSULE PO PRN (11:30)
[2021-05-04] MEDS ORDERED: ACETAMINOPHEN TAB 650MG DOSE (2X325MG) PO PRN (11:30)
[2021-05-04] MEDS ORDERED: OXYTOCIN INJ 10 UNITS/ML VIAL (J2590) As Ordered ONE (11:31)
--- NOTE | 2021-05-04 11:34 | DNPDOC ---
[facility] Delivery Note DATE OF DELIVERY: May 04, 2021 TIME OF : 1114 GENDER: Male. APGARS: 9 and 9. WEIGHT: 2500 g of 5 pounds 8 ounces LACERATIONS: None ANESTHESIA: None ESTIMATED BLOOD LOSS: 200 ml COUNTS: 5 laparotomy sponges accounted for prior to after delivery. DELIVERY NOTE: On on May 04, 2021 at 1114 Ms. Santana is a 25-year-old 3 now para 3 had a spontaneous vaginal delivery of a liveborn male Apgars 9 and 9 weight was 2500 g of 5 pounds 8 ounces. Head was delivered occiput anterior (OA), followed by delivery of the shoulders and corpus. was handed to mom with a good cry. Cord was clamped times two and was cut by support person under my direction. Placenta was then drained and delivered grossly intact. A premixed bag of 500 mL of normal saline with 30 units of Pitocin was then bolused along with uterine massage until the uterus was firm. On inspection , cervix, vagina, perineum was grossly intact and hemostatic. Mom and baby in recovery on stable condition. NGUYEN SHANNON MD. May 04, 2021 11:34
[2021-05-05 06:00] VITALS: BP 105/56
[2021-05-05] MEDS ORDERED: DOCUSATE SODIUM 100MG CAPSULE PO PRN (07:25)
[2021-05-05] MEDS ORDERED: MOM 30ML SUSPENSION UDC PO PRN (07:25)
[2021-05-05] MEDS ORDERED: IBUPROFEN 800 MG TAB PO PRN (07:25)
[2021-05-05] MEDS ORDERED: IBUPROFEN 600MG TAB PO PRN (07:25)
[2021-05-05] MEDS ORDERED: ACETAMINOPHEN 500 MG TAB PO PRN (07:25)
[2021-05-05] MEDS ORDERED: ACETAMINOPHEN TAB 650MG DOSE (2X325MG) PO PRN (07:25)
[2021-05-05] MEDS ORDERED: LEVOTAB10 PO (08:46)
[2021-05-05] MEDS ORDERED: HOME MED LIST COMPLETE! XX SCH (08:50)
[2021-05-05] MEDS ORDERED: VENLAFAXINE **XR** 37.5 MG CAPSULE PO SCH ×2 (09:00→21:00)
[2021-05-05] MEDS ORDERED: hydrOXYzine 50 MG TAB PO SCH (09:00)
[2021-05-05] MEDS: CETIRIZINE (ZyrTEC) 10 MG TAB PO SCH (09:10)
[2021-05-05] MEDS: FAMOTIDINE 20 MG TAB PO SCH (09:10)
[2021-05-05] MEDS: PRENATAL VITAMINS CHEWABLE TABLET PO SCH (09:10)
[2021-05-05] MEDS ORDERED: hydrOXYzine 25 MG TAB PO PRN (11:40)
--- NOTE | 2021-05-05 12:22 | IPNPDOC ---
Progress Note Date of Service: May 05, 2021 Day#: 1 Progress Note SUBJECT: Laura is a 25-year-old 3 now Para 3003 status post uncompl icated spontaneous vaginal delivery at 37-3/7 weeks' on 05/04/21 of a male weighting 5 pounds 8 ounces (2500 grams) over intact perineum. Doing well day # 1. She has been ambulating, voiding spontaneously without issue and tolerating regular diet. Bottle feeding without issue. Reports lochia is like a normal period. Denies any pain. She has a history of depression and requesting to restart her Effexor, which she was taking prior to . She also reports angioedema and states she is feeling a flare up in her neck and requesting we order her medications she takes for this. VITAL SIGNS: Within normal limits, afebrile. Alert and oriented times three. Respirations are nonlabored on room air. Abdomen: Fundus firm at U-2. Soft, NTTP. Minimal lochia. ASSESSMENT: day 1 PLAN: 1. Discharge to home tomorrow. 2. Tylenol and Motrin for pain. 3. Effexor XR 37.5 mg PO QD as per patient request. 4. Treatment for angioedema, started hydroxyzine and cetirizine. See medication orders. 5. Continue with supportive nursing care. VS, I&O, 24H, Fishbone Vital Signs/I&O Vital Signs Date Time Temp Pulse Resp B/P (MAP) Pulse Ox O2 Delivery O2 Flow Rate FiO2 05/05/21 06:00 97.5 72 18 105/56 (72) 05/04/21 17:43 97 Room Air I&O- Last 24 Hours up to 6 AM 05/05/21 06:00 Intake Total 1387.7 ml Output Total 800 ml Balance 587.7 ml JASMIN ZAVALA CNM May 05, 2021 12:22
[2021-05-05 18:00] VITALS: BP 116/54
[2021-05-06 06:00] VITALS: BP 122/57
[2021-05-06] MEDS ORDERED: hydrOXYzine 25 MG TAB PO SCH (09:00)
[2021-05-06] MEDS: PRENATAL VITAMINS CHEWABLE TABLET PO SCH (09:06)
[2021-05-06] MEDS: CETIRIZINE (ZyrTEC) 10 MG TAB PO SCH (09:06)
[2021-05-06] MEDS: FAMOTIDINE 20 MG TAB PO SCH (09:06)
[2021-05-06] MEDS ORDERED: ACET-683 PO (09:24)
[2021-05-06] MEDS ORDERED: IBUP80TA PO (09:24)
== END 2021-05-06 13:10 | disposition home or self-care (01) | DRG 560 ==
LOC: M LDI 19:17 → M OBS 05-04 14:49 → UNDODISIN 05-04 18:35
PROVIDERS: ADMIT Obstetrics & Gynecology; ATTEND Obstetrics & Gynecology
PROC: 3E0DXGC Introduction of Other Therapeutic Substance into Mouth and Pharynx, External Approach (ICD-10-PCS; 2021-05-03)
PROC: 10E0XZZ Delivery of Products of Conception, External Approach (ICD-10-PCS; principal; 2021-05-04)
DX: O24.429 Gestational diabetes mellitus in childbirth, unspecified control (principal); Z37.0 Single live birth; Z3A.37 37 weeks gestation of pregnancy

== ENCOUNTER 2021-09-16 17:45 | Emergency (ER) | payer OTHER ==
[~2021-09-16] VITALS: Ht 172.7 cm; Wt 90.9 kg
[~2021-09-16 17:45] MED LIST changes: +ACET-683 PO
[2021-09-16] MEDS ORDERED: FLUORESCEIN OPHTH 1 MG STRIP OS ONE (18:20)
[2021-09-16] MEDS ORDERED: PROPARACAINE 0.5% OPHTH SOL 15ML OS ONE (18:20)
[2021-09-16] MEDS ORDERED: OCUF0.25 OS (19:30)
[2021-09-16] MEDS ORDERED: POLYVINYL ALCOHOL OPHTH SOLN 15 ML(LIQUITEARS) OS ONE (19:50)
[2021-09-16] MEDS ORDERED: OFLOXACIN 0.3 % (OCUFLOX) OPTH SOL 5ML OS ONE (19:50)
[2021-09-16] MEDS ORDERED: LACROIN OP (19:52)
[2021-09-16] MEDS ORDERED: OCUF0.25 OP (19:56)
[2021-09-16 20:56] VITALS: BP 113/71
== END 2021-09-16 20:55 | disposition home or self-care (01) ==
LOC: M ED 17:45
DX: S05.02XA Injury of conjunctiva and corneal abrasion without foreign body, left eye, initial encounter (principal); T65.891A Toxic effect of other specified substances, accidental (unintentional), initial encounter; Y92.239 Unspecified place in hospital as the place of occurrence of the external cause; Y93.89 Activity, other specified; Y99.0 Civilian activity done for income or pay; F17.200 Nicotine dependence, unspecified, uncomplicated; Z86.79 Personal history of other diseases of the circulatory system; Z79.899 Other long term (current) drug therapy

== ENCOUNTER → 2021-11-07 | Outpatient (REF) ==
[~2021-11-07] MED LIST changes: +LACROIN OP; +OCUF0.25 OP; +OCUF0.25 OS
== END ==
LOC: M LABSMTC 10:07
PROVIDERS: ATTEND Family Medicine
DX: Z20.828 Contact with and (suspected) exposure to other viral communicable diseases (principal)

== ENCOUNTER → 2021-11-10 | Outpatient (CLI) | payer OTHER ==
[2021-11-10 15:42] LABS: BASO # 0.1 10^3/uL (0.0-0.2); BASO % 0.7 % (0.0-1.0); EOS # 0.1 10^3/uL (0.0-0.5); EOS % 1.1 % (0.0-3.0); HEMATOCRIT 42.8 % (36.0-47.0); HEMOGLOBIN 14.5 g/dl (12.0-15.5); LYMPH # 2.9 10^3/uL (1.5-5.0); LYMPH % 31.7 % (24.0-44.0); MEAN CORPUSCULAR HEMOGLOBIN 29.5 pg (27.0-33.0); MEAN CORPUSCULAR HGB CONC 33.9 g/dl (32.0-36.5); MONO # 0.8 10^3/uL (0.0-0.8); MONO % 8.5 % (2.0-8.0); NEUTROPHILS # 5.2 10^3/uL (1.5-8.5); NEUTROPHILS % 57.8 % (36.0-66.0); PLATELET COUNT, AUTOMATED 389 10^3/uL (150-450); RED BLOOD COUNT 4.92 10^6/uL (4.00-5.40)
[2021-11-10 16:15] LABS: HCG, SERUM QUALITATIVE NEGATIVE (NEGATIVE)
[2021-11-10 16:17] LABS: ALBUMIN 3.9 GM/DL (3.2-5.2); ALT/SGPT 25 U/L (12-78); BILIRUBIN,TOTAL 0.3 MG/DL (0.2-1.0); BLOOD UREA NITROGEN 15 MG/DL (7-18); CALCIUM LEVEL 9.7 MG/DL (8.5-10.1); CARBON DIOXIDE LEVEL 26 MEQ/L (21-32); CHLORIDE LEVEL 107 MEQ/L (98-107); CREATININE FOR GFR 0.86 MG/DL (0.55-1.30); FERRITIN 40 NG/ML (8-252); FREE T4 1.22 NG/DL (0.76-1.46); GLOMERULAR FILTRATION RATE > 60.0 (>60); GLUCOSE, FASTING 98 MG/DL (70-100); IRON (FE) 89 UG/DL (50-170); PERCENT SATURATION 19.8 % (13.2-45.0); POTASSIUM SERUM 4.3 MEQ/L (3.5-5.1); SODIUM LEVEL 138 MEQ/L (136-145); THYROID STIMULATING HORMONE 0.716 uIU/ML (0.358-3.740); TOTAL IRON BINDING CAPACITY 449 UG/DL (250-450); TOTAL PROTEIN 7.5 GM/DL (6.4-8.2)
[2021-11-10 16:18] LABS: VITAMIN B12 LEVEL 958 PG/ML (247-911)
== END ==
LOC: M PLAIMG 12:37
PROVIDERS: ATTEND Internal Medicine Hematology
DX: F32.2 Major depressive disorder, single episode, severe without psychotic features (principal); Z13.31 Encounter for screening for depression

== ENCOUNTER 2021-11-13 11:28 | Emergency (ER) | payer OTHER ==
[~2021-11-13] VITALS: Ht 172.7 cm; Wt 103.4 kg
[2021-11-13] MEDS ORDERED: EPINEPHrine INJ 1 MG/ML 1ML AMP IM STA (12:29)
[2021-11-13] MEDS ORDERED: methylPREDNISolone 125MG 2ML VIAL IV ONE (12:30)
[2021-11-13] MEDS ORDERED: diphenhydrAMINE 50MG/ML VIAL (J1200) IV ONE (12:30)
[2021-11-13] MEDS ORDERED: FAMOTIDINE 20MG/2ML VIAL IVP ONE (12:30)
[2021-11-13] MEDS ORDERED: NS 1,000 ML IV ONE (12:30)
[2021-11-13] MEDS ORDERED: CLON0.5T2 PO (12:34)
[2021-11-13] MEDS ORDERED: LEXA1TAB2 PO (12:34)
[2021-11-13] MEDS ORDERED: OLAN1TAB16 PO (12:34)
[2021-11-13 13:08] LABS: BASO # 0.1 10^3/uL (0.0-0.2); BASO % 0.7 % (0.0-1.0); EOS # 0.1 10^3/uL (0.0-0.5); EOS % 0.9 % (0.0-3.0); HEMATOCRIT 43.3 % (36.0-47.0); HEMOGLOBIN 14.8 g/dl (12.0-15.5); LYMPH # 2.3 10^3/uL (1.5-5.0); LYMPH % 23.5 % (24.0-44.0); MEAN CORPUSCULAR HEMOGLOBIN 29.2 pg (27.0-33.0); MEAN CORPUSCULAR HGB CONC 34.2 g/dl (32.0-36.5); MEAN CORPUSCULAR VOLUME 85.4 fl (80.0-96.0); MONO % 9.9 % (2.0-8.0); NEUTROPHILS # 6.4 10^3/uL (1.5-8.5); NEUTROPHILS % 64.7 % (36.0-66.0); PLATELET COUNT, AUTOMATED 384 10^3/uL (150-450); RED BLOOD COUNT 5.07 10^6/uL (4.00-5.40); WHITE BLOOD COUNT 9.9 10^3/uL (4.0-10.0)
[2021-11-13 13:14] LABS: ALBUMIN 3.9 GM/DL (3.2-5.2); ALT/SGPT 24 U/L (12-78); BILIRUBIN,DIRECT < 0.1 MG/DL (0.0-0.2); BILIRUBIN,TOTAL 0.3 MG/DL (0.2-1.0); BLOOD UREA NITROGEN 13 MG/DL (7-18); CALCIUM LEVEL 9.6 MG/DL (8.5-10.1); CARBON DIOXIDE LEVEL 25 MEQ/L (21-32); CHLORIDE LEVEL 110 MEQ/L (98-107); COMPLEMENT C4 34 MG/DL (10-40); CREATININE FOR GFR 0.84 MG/DL (0.55-1.30); GLOMERULAR FILTRATION RATE > 60.0 (>60); GLUCOSE, FASTING 111 MG/DL (70-100); POTASSIUM SERUM 4.3 MEQ/L (3.5-5.1); SODIUM LEVEL 140 MEQ/L (136-145); TOTAL PROTEIN 7.5 GM/DL (6.4-8.2)
[2021-11-13 13:16] LABS: HCG, SERUM QUALITATIVE NEGATIVE (NEGATIVE)
[2021-11-13 13:46] LABS: ERYTHROCYTE SEDIMENTATION RATE 9 mm/hr (0-20)
[2021-11-13 17:30] VITALS: BP 112/56
[2021-11-13] MEDS ORDERED: EPIP0.3I2 IM (17:34)
[2021-11-13] MEDS ORDERED: PRED10TA2 PO (17:34)
== END 2021-11-13 17:40 | disposition home or self-care (01) ==
LOC: M ED 11:28
DX: D84.1 Defects in the complement system (principal); Z79.899 Other long term (current) drug therapy
CPT/HCPCS: 36415; 80048; 80076; 84703; 85025; 85652; 86140; 86160; 93041; 94760; 96361; 96372; 96374; 96375; 99285; J0171; J1200; J2930

== ENCOUNTER 2021-12-25 11:00 | Emergency (ER) | payer OTHER ==
[~2021-12-25] VITALS: Ht 172.7 cm; Wt 106.1 kg
[~2021-12-25 11:00] MED LIST changes: +CLON0.5T2 PO; +EPIP0.3I2 IM; +LEXA1TAB2 PO; +OLAN1TAB16 PO; +PRED10TA2 PO
[2021-12-25 11:01] VITALS: BP 131/58
[2021-12-25] MEDS ORDERED: OMEP20TA2 PO (11:24)
[2021-12-25] MEDS ORDERED: ERGO500029 (11:24)
== END 2021-12-25 14:25 | disposition left against medical advice (07) ==
LOC: M ED 11:00
DX: Z53.21 Procedure and treatment not carried out due to patient leaving prior to being seen by health care provider (principal)

== ENCOUNTER → 2022-03-18 | Outpatient (REF) ==
[~2022-03-18] MED LIST changes: +ERGO500029; +OMEP20TA2 PO
== END ==
LOC: M LABSMTC 11:03
PROVIDERS: ATTEND Family Medicine
DX: Z20.822 Contact with and (suspected) exposure to COVID-19 (principal)

== ENCOUNTER → 2022-03-19 | Outpatient (CLI) | payer OTHER | LOC: M PLAIMG 11:08 | PROVIDERS: ATTEND Physician Assistant | DX: R68.89 Other general symptoms and signs (principal); R05.9 Cough, unspecified ==

== ENCOUNTER → 2022-03-27 | Outpatient (CLI) | payer OTHER ==
[2022-03-27 15:44] LABS: BASO # 0.1 10^3/uL (0.0-0.2); BASO % 0.6 % (0.0-1.0); EOS # 0.1 10^3/uL (0.0-0.5); EOS % 0.6 % (0.0-3.0); HEMATOCRIT 41.2 % (36.0-47.0); HEMOGLOBIN 13.5 g/dl (12.0-15.5); LYMPH % 38.1 % (24.0-44.0); MEAN CORPUSCULAR HEMOGLOBIN 28.4 pg (27.0-33.0); MEAN CORPUSCULAR HGB CONC 32.8 g/dl (32.0-36.5); MEAN CORPUSCULAR VOLUME 86.6 fl (80.0-96.0); MONO # 0.8 10^3/uL (0.0-0.8); NEUTROPHILS # 7.1 10^3/uL (1.5-8.5); NEUTROPHILS % 54.1 % (36.0-66.0); PLATELET COUNT, AUTOMATED 442 10^3/uL (150-450); RED BLOOD COUNT 4.76 10^6/uL (4.00-5.40); WHITE BLOOD COUNT 13.1 10^3/uL (4.0-10.0)
[2022-03-27 16:19] LABS: ERYTHROCYTE SEDIMENTATION RATE 11 mm/hr (0-20)
[2022-03-27 16:30] LABS: BLOOD UREA NITROGEN 15 MG/DL (7-18); CALCIUM LEVEL 9.1 MG/DL (8.5-10.1); CARBON DIOXIDE LEVEL 27 MEQ/L (21-32); CHLORIDE LEVEL 106 MEQ/L (98-107); CREATININE FOR GFR 0.86 MG/DL (0.55-1.30); GLOMERULAR FILTRATION RATE > 60.0 (>60); GLUCOSE, FASTING 147 MG/DL (70-100); POTASSIUM SERUM 3.6 MEQ/L (3.5-5.1); SODIUM LEVEL 138 MEQ/L (136-145)
[2022-03-27 16:31] LABS: ALBUMIN 3.7 GM/DL (3.2-5.2); ALT/SGPT 21 U/L (12-78); BILIRUBIN,TOTAL 0.3 MG/DL (0.2-1.0); TOTAL PROTEIN 7.4 GM/DL (6.4-8.2)
== END ==
LOC: M PLALAB 14:21
PROVIDERS: ATTEND Physician Assistant
DX: R53.81 Other malaise (principal); R06.02 Shortness of breath; J40 Bronchitis, not specified as acute or chronic

== ENCOUNTER 2022-04-22 03:35 | Emergency (ER) | payer OTHER ==
[~2022-04-22] VITALS: Ht 172.7 cm; Wt 104.7 kg
[2022-04-22] MEDS ORDERED: PRED20TA PO (04:54)
[2022-04-22] MEDS ORDERED: methylPREDNISolone 125MG 2ML VIAL IM ONE (04:55)
[2022-04-22 06:03] VITALS: BP 107/55
== END 2022-04-22 06:07 | disposition home or self-care (01) ==
LOC: M ED 03:35
DX: T78.3XXA Angioneurotic edema, initial encounter (principal); Z79.899 Other long term (current) drug therapy
CPT/HCPCS: 96372; 99284; J2930

== ENCOUNTER 2022-04-24 10:04 | Emergency (ER) | payer OTHER ==
[~2022-04-24] VITALS: Ht 172.7 cm; Wt 104.4 kg
[2022-04-24 10:04] VITALS: BP 127/67
[2022-04-24] MEDS ORDERED: predniSONE 20 MG TAB PO ONE (11:40)
[2022-04-24] MEDS ORDERED: CETIRIZINE (ZyrTEC) 10 MG TAB PO ONE (11:40)
== END 2022-04-24 13:41 | disposition home or self-care (01) ==
LOC: M ED 10:04
DX: L50.1 Idiopathic urticaria (principal); Z79.899 Other long term (current) drug therapy
CPT/HCPCS: 99283; J7512

== ENCOUNTER 2022-05-02 02:35 | Emergency (ER) | payer OTHER ==
[~2022-05-02] VITALS: Ht 172.7 cm; Wt 106.4 kg
[2022-05-02] MEDS ORDERED: FAMOTIDINE 20MG/2ML VIAL IVP ONE (02:45)
[2022-05-02] MEDS ORDERED: diphenhydrAMINE 50MG/ML VIAL (J1200) IV ONE (02:45)
[2022-05-02] MEDS ORDERED: methylPREDNISolone 125MG 2ML VIAL IV ONE (02:45)
[2022-05-02] MEDS ORDERED: PRED20TA PO (04:25)
[2022-05-02 04:35] VITALS: BP 103/63
[2022-05-03] MEDS ORDERED: FAMO40TA3 PO (23:14)
== END 2022-05-02 04:38 | disposition home or self-care (01) ==
LOC: M ED 02:35
DX: T78.3XXA Angioneurotic edema, initial encounter (principal); Z79.899 Other long term (current) drug therapy
CPT/HCPCS: 93041; 94760; 96374; 96375; 99284; J1200; J2930

== ENCOUNTER 2022-05-03 17:55 | Emergency (ER) | payer OTHER ==
[~2022-05-03] VITALS: Ht 172.7 cm; Wt 105.5 kg
[2022-05-03] MEDS ORDERED: methylPREDNISolone 125MG 2ML VIAL IV ONE (21:05)
[2022-05-03] MEDS ORDERED: NS 1,000 ML IV ONE (21:05)
[2022-05-03] MEDS ORDERED: diphenhydrAMINE 50MG/ML VIAL (J1200) IV ONE (21:05)
[2022-05-03] MEDS ORDERED: FAMOTIDINE 20MG/2ML VIAL IVP ONE (21:05)
[2022-05-03 21:35] LABS: BASO # 0.1 10^3/uL (0.0-0.2); BASO % 0.3 % (0.0-1.0); EOS # 0.1 10^3/uL (0.0-0.5); EOS % 0.4 % (0.0-3.0); HEMATOCRIT 41.3 % (36.0-47.0); HEMOGLOBIN 13.6 g/dl (12.0-15.5); LYMPH % 33.1 % (24.0-44.0); MEAN CORPUSCULAR HEMOGLOBIN 28.8 pg (27.0-33.0); MEAN CORPUSCULAR HGB CONC 32.9 g/dl (32.0-36.5); MEAN CORPUSCULAR VOLUME 87.3 fl (80.0-96.0); MONO % 5.3 % (2.0-8.0); PLATELET COUNT, AUTOMATED 403 10^3/uL (150-450); RED BLOOD COUNT 4.73 10^6/uL (4.00-5.40); WHITE BLOOD COUNT 18.2 10^3/uL (4.0-10.0)
[2022-05-03] MEDS ORDERED: POTASSIUM CHLORIDE 10MEQ SR TABLET PO ONE (21:55)
[2022-05-03 22:02] LABS: C REACTIVE PROTEIN QUANTITATIV 0.71 MG/DL (0.00-0.30)
[2022-05-03 22:14] LABS: ERYTHROCYTE SEDIMENTATION RATE 3 mm/hr (0-20)
[2022-05-03 23:04] LABS: POTASSIUM SERUM 3.5 MEQ/L (3.5-5.1)
[2022-05-03 23:09] VITALS: BP 124/59
[2022-05-03] MEDS ORDERED: FAMO40TA3 PO (23:14)
== END 2022-05-03 23:53 | disposition home or self-care (01) ==
LOC: M ED 17:55
DX: L50.9 Urticaria, unspecified (principal); D72.829 Elevated white blood cell count, unspecified; Z79.899 Other long term (current) drug therapy
CPT/HCPCS: 84132; 85025; 85652; 86140; 96361; 96374; 96375; 99283; J1200; J2930

== ENCOUNTER 2022-06-30 11:42 | Emergency (ER) | payer OTHER ==
[~2022-06-30] VITALS: Ht 172.7 cm; Wt 104.1 kg
[~2022-06-30 11:42] MED LIST changes: +FAMO40TA3 PO
[2022-06-30 11:44] VITALS: BP 119/76
== END 2022-06-30 12:38 | disposition left against medical advice (07) ==
LOC: M ED 11:42
DX: Z53.21 Procedure and treatment not carried out due to patient leaving prior to being seen by health care provider (principal)

== ENCOUNTER → 2022-07-09 | Outpatient (CLI) | payer OTHER | LOC: M PLAIMG 12:24 | PROVIDERS: ATTEND Physician Assistant | DX: M79.601 Pain in right arm (principal); Z91.81 History of falling ==

== ENCOUNTER 2022-07-25 10:33 | Emergency (ER) | payer OTHER ==
[~2022-07-25] VITALS: Ht 172.7 cm; Wt 104.7 kg
[2022-07-25] MEDS ORDERED: TRAM50TA2 PO (10:54)
[2022-07-25] MEDS ORDERED: ALLE60TA69 PO (10:54)
[2022-07-25] MEDS ORDERED: FAMO10TA50 PO (10:54)
[2022-07-25] MEDS ORDERED: FAMOTIDINE 20MG/2ML VIAL IVP ONE (11:15)
[2022-07-25] MEDS ORDERED: diphenhydrAMINE 50MG/ML VIAL IV ONE (11:15)
[2022-07-25] MEDS ORDERED: methylPREDNISolone 125MG 2ML VIAL IV ONE (11:15)
[2022-07-25 12:15] LABS: BASO % 0.4 % (0.0-1.0); EOS # 0.1 10^3/uL (0.0-0.5); EOS % 1.2 % (0.0-3.0); HEMATOCRIT 40.9 % (36.0-47.0); HEMOGLOBIN 13.8 g/dl (12.0-15.5); LYMPH # 2.4 10^3/uL (1.5-5.0); LYMPH % 28.3 % (24.0-44.0); MEAN CORPUSCULAR HEMOGLOBIN 29.4 pg (27.0-33.0); MEAN CORPUSCULAR HGB CONC 33.7 g/dl (32.0-36.5); MEAN CORPUSCULAR VOLUME 87.2 fl (80.0-96.0); MONO # 0.5 10^3/uL (0.0-0.8); MONO % 5.9 % (2.0-8.0); NEUTROPHILS # 5.4 10^3/uL (1.5-8.5); PLATELET COUNT, AUTOMATED 296 10^3/uL (150-450); RED BLOOD COUNT 4.69 10^6/uL (4.00-5.40); WHITE BLOOD COUNT 8.4 10^3/uL (4.0-10.0)
[2022-07-25 12:30] LABS: BLOOD UREA NITROGEN 15 MG/DL (9-23); CALCIUM LEVEL 8.7 MG/DL (8.5-10.1); CARBON DIOXIDE LEVEL 24 MMOL/L (20-31); CHLORIDE LEVEL 106 MMOL/L (98-107); CREATININE FOR GFR 0.79 MG/DL (0.55-1.30); GLOMERULAR FILTRATION RATE > 60.0 (>60); GLUCOSE, FASTING 119 MG/DL (60-100); POTASSIUM SERUM 4.4 MMOL/L (3.5-5.1); SODIUM LEVEL 138 MMOL/L (136-145)
[2022-07-25] MEDS ORDERED: DEXA4TA PO (13:01)
[2022-07-25 13:03] VITALS: BP 132/15
== END 2022-07-25 13:10 | disposition home or self-care (01) ==
LOC: M ED 10:33
DX: T78.3XXA Angioneurotic edema, initial encounter (principal); F17.200 Nicotine dependence, unspecified, uncomplicated; F41.9 Anxiety disorder, unspecified; Z79.02 Long term (current) use of antithrombotics/antiplatelets; Z79.1 Long term (current) use of non-steroidal anti-inflammatories (NSAID); Z79.899 Other long term (current) drug therapy

== ENCOUNTER 2022-08-10 00:10 | Emergency (ER) | payer OTHER ==
[~2022-08-10] VITALS: Ht 172.7 cm; Wt 104.9 kg
[~2022-08-10 00:10] MED LIST changes: +ALLE60TA69 PO; +DEXA4TA PO; +TRAM50TA2 PO
[2022-08-10 00:13] VITALS: BP 130/69
== END 2022-08-10 03:22 | disposition left against medical advice (07) ==
LOC: M ED 00:10
DX: Z53.21 Procedure and treatment not carried out due to patient leaving prior to being seen by health care provider (principal)

== ENCOUNTER → 2022-08-17 | Outpatient (CLI) | payer OTHER ==
[2022-08-17 18:05] LABS: ERYTHROCYTE SEDIMENTATION RATE 9 mm/hr (0-20)
[2022-08-17 18:14] LABS: BASO # 0.1 10^3/uL (0.0-0.2); BASO % 0.5 % (0.0-1.0); EOS # 0.2 10^3/uL (0.0-0.5); EOS % 1.4 % (0.0-3.0); HEMATOCRIT 40.1 % (36.0-47.0); HEMOGLOBIN 13.5 g/dl (12.0-15.5); LYMPH # 3.9 10^3/uL (1.5-5.0); LYMPH % 35.4 % (24.0-44.0); MEAN CORPUSCULAR HEMOGLOBIN 29.4 pg (27.0-33.0); MEAN CORPUSCULAR HGB CONC 33.7 g/dl (32.0-36.5); MEAN CORPUSCULAR VOLUME 87.4 fl (80.0-96.0); MONO # 0.8 10^3/uL (0.0-0.8); NEUTROPHILS # 6.1 10^3/uL (1.5-8.5); NEUTROPHILS % 55.3 % (36.0-66.0); PLATELET COUNT, AUTOMATED 390 10^3/uL (150-450); RED BLOOD COUNT 4.59 10^6/uL (4.00-5.40); WHITE BLOOD COUNT 11.1 10^3/uL (4.0-10.0)
[2022-08-17 18:25] LABS: HEMOGLOBIN A1c 5.7 % (4.0-6.0)
[2022-08-17 18:27] LABS: CREATININE, URINE 116.2 MG/DL; MALB URINE SIEMENS < 3.0 MG/DL; MAU/CREAT RATIO 2.5 MCG/MG (0.0-30.0)
[2022-08-17 18:30] LABS: C REACTIVE PROTEIN QUANTITATIV < 0.40 MG/DL (<1.0)
[2022-08-17 18:31] LABS: IRON (FE) 51 UG/DL (50-170); PERCENT SATURATION 13.5 % (13.2-45.0); RHEUMATOID FACTOR QUANT < 3.5 IU/ML (<14); TOTAL IRON BINDING CAPACITY 377 UG/DL (250-425)
[2022-08-17 18:34] LABS: ALBUMIN 3.7 G/DL (3.2-5.2); ALKALINE PHOSPHATASE 67 U/L (46-116); ALT/SGPT 16 U/L (7.0-40); AST/SGOT 12 U/L (<34); BILIRUBIN,TOTAL 0.2 MG/DL (0.3-1.2); BLOOD UREA NITROGEN 18 MG/DL (9-23); CALCIUM LEVEL 8.6 MG/DL (8.5-10.1); CARBON DIOXIDE LEVEL 26 MMOL/L (20-31); CHLORIDE LEVEL 104 MMOL/L (98-107); CREATININE FOR GFR 0.82 MG/DL (0.55-1.30); FERRITIN 34.8 NG/ML (7.3-270.7); FREE T4 1.31 NG/DL (0.89-1.76); GLOMERULAR FILTRATION RATE > 60.0 (>60); GLUCOSE, FASTING 91 MG/DL (60-100); POTASSIUM SERUM 4.1 MMOL/L (3.5-5.1); SODIUM LEVEL 137 MMOL/L (136-145); THYROID STIMULATING HORMONE 0.947 uIU/ML (0.55-4.78); TOTAL 25(OH) VITAMIN D 14.7 NG/ML (20.0-100.0); VITAMIN B12 LEVEL 919 PG/ML (211-911)
== END ==
LOC: M PLALAB 16:42
PROVIDERS: ATTEND Internal Medicine Hematology
DX: R53.82 Chronic fatigue, unspecified (principal); E55.9 Vitamin D deficiency, unspecified

== ENCOUNTER → 2022-11-03 | Outpatient (REF) | payer OTHER ==
[2022-11-03 15:24] LABS: CALCIUM LEVEL 8.7 MG/DL (8.5-10.1); HEMOGLOBIN A1c 5.2 % (4.0-6.0)
[2022-11-03 15:25] LABS: C REACTIVE PROTEIN QUANTITATIV 0.4 MG/DL (<1.0); PTH INTACT 42.8 PG/ML (18.5-88.0)
[2022-11-03 15:26] LABS: FOLATE 8.42 NG/ML (>5.4)
[2022-11-03 15:27] LABS: TOTAL 25(OH) VITAMIN D 21.6 NG/ML (20.0-100.0)
[2022-11-10 21:08] LABS: HLA-B27 Negative (.); NICOTINAMIDE 28.7 ng/mL (5.2-72.1); NICOTINIC ACID <5.0 ng/mL (0.0-5.0); VITAMIN B1 LEVEL WHOLE BLOOD 108.8 nmol/L (66.5-200.0); VITAMIN B2 (RIBOFLAVIN) 268 ug/L (137-370); VITAMIN B6,PYRIDOXAL PHOSPHATE 6.2 ug/L (3.4-65.2); VITAMIN C, ASCORBIC ACID 0.1 mg/dL (0.4-2.0)
== END ==
LOC: M SFHCRHEU 09:12
PROVIDERS: ATTEND Internal Medicine
DX: R25.2 Cramp and spasm (principal); R53.83 Other fatigue; E55.9 Vitamin D deficiency, unspecified; M25.50 Pain in unspecified joint; R73.09 Other abnormal glucose; M54.9 Dorsalgia, unspecified

== ENCOUNTER 2022-11-15 10:06 | Emergency (ER) | payer OTHER ==
[~2022-11-15] VITALS: Ht 172.7 cm; Wt 105.3 kg
[2022-11-15] MEDS ORDERED: FAMOTIDINE 20MG/2ML VIAL IVP ONE (10:20)
[2022-11-15] MEDS ORDERED: diphenhydrAMINE 50MG/ML VIAL IV ONE (10:20)
[2022-11-15] MEDS ORDERED: methylPREDNISolone 125MG 2ML VIAL IV ONE (10:20)
[2022-11-15] MEDS ORDERED: EPINEPHrine INJ 1 MG/ML 1ML AMP IM STA (10:22)
[2022-11-15] MEDS ORDERED: C1 ESTERASE INHIBITOR IV ONE (10:25)
[2022-11-15] MEDS ORDERED: C1 ESTERASE INHIBITOR (HUMAN) 2,000 UNIT in IV 1 EA IV ONE (10:30)
[2022-11-15 10:38] LABS: BASO # 0.1 10^3/uL (0.0-0.2); BASO % 0.6 % (0.0-1.0); EOS # 0.1 10^3/uL (0.0-0.5); EOS % 1.4 % (0.0-3.0); HEMATOCRIT 42.2 % (36.0-47.0); HEMOGLOBIN 14.2 g/dl (12.0-15.5); LYMPH # 2.7 10^3/uL (1.5-5.0); LYMPH % 26.6 % (24.0-44.0); MEAN CORPUSCULAR HEMOGLOBIN 28.9 pg (27.0-33.0); MEAN CORPUSCULAR HGB CONC 33.6 g/dl (32.0-36.5); MEAN CORPUSCULAR VOLUME 85.8 fl (80.0-96.0); MONO # 0.6 10^3/uL (0.0-0.8); MONO % 5.7 % (2.0-8.0); NEUTROPHILS # 6.5 10^3/uL (1.5-8.5); NEUTROPHILS % 65.4 % (36.0-66.0); PLATELET COUNT, AUTOMATED 394 10^3/uL (150-450); RED BLOOD COUNT 4.92 10^6/uL (4.00-5.40)
[2022-11-15] MEDS: IPRATROPIUM 0.5MG/ALBUTEROL 2.5MG INH SOL UD 3ML (DUONEB) NEB SCH ×3 (10:50→11:04)
[2022-11-15 11:04] LABS: C REACTIVE PROTEIN QUANTITATIV < 0.40 MG/DL (<1.0)
[2022-11-15 11:06] LABS: ALBUMIN 3.9 G/DL (3.2-5.2); ALKALINE PHOSPHATASE 64 U/L (46-116); ALT/SGPT 19 U/L (7.0-40); AST/SGOT 13 U/L (<34); BILIRUBIN,DIRECT 0.1 MG/DL (<0.4); BILIRUBIN,TOTAL 0.4 MG/DL (0.3-1.2); BLOOD UREA NITROGEN 17 MG/DL (9-23); CALCIUM LEVEL 8.7 MG/DL (8.5-10.1); CARBON DIOXIDE LEVEL 25 MMOL/L (20-31); CHLORIDE LEVEL 106 MMOL/L (98-107); CREATININE FOR GFR 0.71 MG/DL (0.55-1.30); GLOMERULAR FILTRATION RATE > 60.0 (>60); GLUCOSE, FASTING 94 MG/DL (60-100); POTASSIUM SERUM 4.1 MMOL/L (3.5-5.1); SODIUM LEVEL 138 MMOL/L (136-145); TOTAL PROTEIN 7.2 G/DL (5.7-8.2)
[2022-11-15 11:08] LABS: ERYTHROCYTE SEDIMENTATION RATE 12 mm/hr (0-20)
[2022-11-15 11:12] LABS: HCG, SERUM QUALITATIVE NEGATIVE (NEGATIVE)
[2022-11-15 12:15] VITALS: BP 114/63
[2022-11-15] MEDS ORDERED: PRED20TA PO (12:15)
[2022-11-18 23:07] LABS: C1 ESTER INHIB. NON FUNCTIONAL 31 mg/dL (21-39); C1 ESTERASE INHIB. FUNCTIONAL > 93 (.); COAGULATION FACTOR XII ACTIVIT 82 % (50-150); TRYPTASE 8.1 ug/L (2.2-13.2)
== END 2022-11-15 12:23 | disposition home or self-care (01) ==
LOC: M ED 10:06
DX: T78.3XXA Angioneurotic edema, initial encounter (principal); F41.9 Anxiety disorder, unspecified; F32.9 Major depressive disorder, single episode, unspecified; F17.200 Nicotine dependence, unspecified, uncomplicated; F12.10 Cannabis abuse, uncomplicated; Z79.899 Other long term (current) drug therapy
CPT/HCPCS: 80048; 80076; 83519; 84703; 85025; 85280; 85652; 86140; 86160; 86161; 86850; 86900; 86901; 93041; 94640; 94760; 96372; 96374; 96375; 99285; J0171; J0597; J1200; J2930; S0028

== ENCOUNTER 2023-06-20 01:49 | Emergency (ER) | payer OTHER ==
[2023-06-20] MEDS ORDERED: EPINEPHrine INJ 1 MG/ML 1ML AMP IM STA (02:29)
[2023-06-20] MEDS ORDERED: diphenhydrAMINE 50MG/ML VIAL IV ONE (02:30)
[2023-06-20] MEDS ORDERED: methylPREDNISolone 125MG 2ML VIAL IV ONE (02:30)
[2023-06-20] MEDS ORDERED: FAMOTIDINE 20MG/2ML VIAL IVP ONE (02:30)
[2023-06-20] MEDS ORDERED: PRED20TA PO (06:52)
[2023-06-20 07:09] VITALS: BP 118/72; TEMP 98.3; O2SAT 99
== END 2023-06-20 07:11 | disposition home or self-care (01) ==
LOC: M ED 01:49
DX: T78.3XXA Angioneurotic edema, initial encounter (principal); F17.200 Nicotine dependence, unspecified, uncomplicated; Z79.52 Long term (current) use of systemic steroids; Z79.891 Long term (current) use of opiate analgesic; Z79.899 Other long term (current) drug therapy
CPT/HCPCS: 93041; 94760; 96372; 96374; 99285; J0171; J1200; J2930; S0028

== ENCOUNTER → 2023-12-16 | Outpatient (CLI) | payer OTHER ==
[2023-12-16 19:36] LABS: ALBUMIN 3.7 G/DL (3.2-5.2); ALKALINE PHOSPHATASE 52 U/L (46-116); ALT/SGPT 23 U/L (7.0-40); AST/SGOT 9 U/L (<34); BILIRUBIN,TOTAL 0.4 MG/DL (0.3-1.2); BLOOD UREA NITROGEN 14 MG/DL (9-23); CALCIUM LEVEL 9.4 MG/DL (8.5-10.1); CARBON DIOXIDE LEVEL 26 MMOL/L (20-31); CHLORIDE LEVEL 108 MMOL/L (98-107); CREATININE FOR GFR 0.84 MG/DL (0.55-1.30); GLOMERULAR FILTRATION RATE > 60.0 (>60); GLUCOSE, FASTING 70 MG/DL (60-100); POTASSIUM SERUM 4.3 MMOL/L (3.5-5.1); SODIUM LEVEL 141 MMOL/L (136-145); TOTAL PROTEIN 6.7 G/DL (5.7-8.2)
[2023-12-16 19:40] LABS: FREE T4 1.21 NG/DL (0.89-1.76); THYROID STIMULATING HORMONE 0.815 uIU/ML (0.55-4.78)
[2023-12-16 19:41] LABS: PROLACTIN 4.06 NG/ML
[2023-12-16 19:43] LABS: HEMOGLOBIN A1c 5.2 % (4.0-6.0)
[2023-12-16 19:56] LABS: HCG, SERUM QUALITATIVE NEGATIVE (NEGATIVE)
[2023-12-18 06:47] LABS: DEHYDROEPIANDROSTERONE SULFATE 195 mcg/dL (14-349)
== END ==
LOC: M PLALAB 15:40
PROVIDERS: ATTEND Nurse Practitioner Family
DX: N92.6 Irregular menstruation, unspecified (principal)